=== PATIENT | female | born 1945 | race Caucasian/White ===

== ENCOUNTER 2019-11-05 06:52 | Outpatient (CLI) | payer MEDICARE, SELFPAY ==
[2019-11-05 07:13] LABS: Add Urine Microscopic? YES; Appearance Urine Clear (Clear); Basophils Absolute Auto 0.06 K/mm3 (0.00-0.10); Basophils Percent Auto 1.3 % (0.0-1.0); Bilirubin Urine Negative (Negative); Blood Urine Negative (Negative); Color Urine Yellow (Yellow); Eosinophils Absolute Auto 0.13 K/mm3 (0.02-0.50); Eosinophils Percent Auto 2.9 % (1.0-6.0); Glucose Urine UA Negative (Negative); Hemoglobin 14.4 g/dL (11.7-13.8); Immature Granulocyte Absolute 0.01 K/mm3 (0.00-0.00); Immature Granulocyte Percent A 0.2 % (0.0-0.0); Ketones Urine Negative (Negative); Leukocyte Esterase Ur 1+ LEU/UL (Negative); Lymphocytes Absolute Auto 1.77 K/mm3 (1.10-4.50); Lymphocytes Percent Auto 39.6 % (18.0-42.0); Mean Corpuscular HGB Conc 32.7 g/dL (32.0-36.0); Mean Corpuscular Hemoglobin 29.8 pg (27.0-31.0); Mean Corpuscular Volume 91.1 fL (78.0-102.0); Monocytes Absolute Auto 0.56 K/mm3 (0.10-0.90); Monocytes Percent Auto 12.5 % (2.0-11.0); Neutrophils Absolute Auto 1.9 K/mm3 (1.7-7.2); Neutrophils Percent Auto 43.5 % (50.0-70.0); Nitrate Urine Negative (Negative); Platelet Count Result 263 K/mm3 (150-420); Protein Urine Negative (Negative); Red Blood Count 4.83 M/mm3 (4.20-5.40); Red Cell Distribution Width 12.2 % (11.6-14.4); Specific Grav Ur 1.025 (1.010-1.020); Urobilinogen Urine 0.2 mg/dL (0.2-1.0); White Blood Count 4.5 K/mm3 (4.8-10.8); pH Urine 5.5 (5.0-8.0)
[2019-11-05 07:29] LABS: RBC Urine None seen /hpf (0-2); Squamous Epithelial Cell Urine Few /hpf (Few)
[2019-11-05 07:30] LABS: Bacteria Urine Trace /hpf
[2019-11-05 09:31] LABS: Alanine Aminotransferase 28 U/L (14-59); Alkaline Phosphatase 80 U/L (46-116); Anion Gap 12.4 mmol/L (7-16); Aspartate Amino Transferase 21 U/L (15-37); Bilirubin Direct 0.1 mg/dL (0-0.2); Bilirubin,Total 0.4 mg/dL (0.00-1.00); Blood Urea Nitrogen 19 mg/dL (7-18); Carbon Dioxide 28 mmol/L (21-32); Chloride 103 mmol/L (98-108); Cholesterol 195 mg/dL (0-200); Estimated Glomerular Filt Rate > 60; Glucose 108 mg/dL (70-99); HDL Direct 39 mg/dL (40-60); LDL Cholesterol Calculated 106 mg/dL (<130); Osmolality Calculated 291 mOsm/kg (285-295); Potassium 4.4 mmol/L (3.5-5.1); Sodium 139 mmol/L (136-145); Total Protein 7.1 g/dL (6.4-8.2); Triglycerides 251 mg/dL (0-150)
[2019-11-05 14:20] LABS: Hemoglobin A1C 6.5 % (<5.7)
== END 2019-11-05 06:53 | disposition home or self-care (01) ==
LOC: CHSLAB 06:54
PROVIDERS: PCP Internal Medicine; Visit Provider Internal Medicine
DX: E78.5 Hyperlipidemia, unspecified (principal); I10 Essential (primary) hypertension; N39.0 Urinary tract infection, site not specified; R73.01 Impaired fasting glucose
CPT/HCPCS: 36415; 80053; 80061; 81001; 82248; 83036; 85025; 87086; 87088

== ENCOUNTER 2019-11-30 09:28 | Outpatient (CLI) | payer SELFPAY | END 2019-11-30 09:29 | disposition home or self-care (01) | LOC: CHSOUTPT 09:33 | PROVIDERS: PCP Internal Medicine | DX: Z71.3 Dietary counseling and surveillance (principal) | CPT/HCPCS: 99199 ==

== ENCOUNTER 2020-03-22 14:21 | Outpatient (CLI) | payer MEDICARE, SELFPAY ==
--- NOTE | ~2020-03-22 | MM_ITS ---
EXAMINATION: MM screening emmanuel BI w samra HISTORY: Screening TECHNIQUE: Craniocaudal and mediolateral oblique 3-D tomosynthesis images were obtained and synthetic 2-D images were generated. CAD analysis was submitted and interpreted. COMPARISON: Comparison to multiple prior studies sequentially, with oldest reviewed study dated 02/16. BREAST PARENCHYMAL COMPOSITION: There are scattered areas of fibroglandular density. FINDINGS: There is no evidence of suspicious mass, calcification, or architectural distortion to sugg est malignancy in either breast. There has been no suspicious interval change. IMPRESSION: 1. No mammographic evidence of malignancy. 2. Recommend routine screening mammography in one year. BI-RADS Category 1: Negative Reviewed, dictated and finalized at location D. 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
== END 2020-03-22 14:22 | disposition home or self-care (01) ==
LOC: CHSIMG 14:22
PROVIDERS: PCP Internal Medicine; Visit Provider Student in an Organized Health Care Education/Training Program
DX: Z12.31 Encounter for screening mammogram for malignant neoplasm of breast (principal)
CPT/HCPCS: 77063; 77067

== ENCOUNTER 2020-06-12 06:59 | Outpatient (CLI) | payer MEDICARE, SELFPAY ==
[2020-06-12 07:48] LABS: Hemoglobin A1C 5.6 % (<5.7)
[2020-06-12 08:41] LABS: MALB Creatinine Ratio 19.5 mg/g (0-30); Microalbumin Urine Random < 13.0 mg/L
[2020-06-12 09:07] LABS: Alanine Aminotransferase 36 U/L (14-59); Albumin Level 4.2 g/dL (3.4-5.0); Alkaline Phosphatase 81 U/L (46-116); Anion Gap 10 mmol/L (8-16); Aspartate Amino Transferase 17 U/L (15-37); Bilirubin,Total 0.3 mg/dL (0.00-1.00); Blood Urea Nitrogen 17 mg/dL (7-18); Calcium 9.1 mg/dL (8.5-10.1); Carbon Dioxide 27 mmol/L (21-32); Chloride 102 mmol/L (98-108); Cholesterol 184 mg/dL (0-200); Estimated Glomerular Filt Rate 57; Glucose 107 mg/dL (70-99); HDL Direct 36 mg/dL (40-60); LDL Cholesterol Calculated 100 mg/dL (<130); Osmolality Calculated 289 mOsm/kg (285-295); Potassium 4.6 mmol/L (3.5-5.1); Sodium 139 mmol/L (136-145); Thyroid Stimulating Hormone 4.13 uIU/mL (0.36-3.74); Total Protein 7.3 g/dL (6.4-8.2); Triglycerides 242 mg/dL (0-150)
== END 2020-06-12 07:00 | disposition home or self-care (01) ==
PROVIDERS: PCP Internal Medicine; Visit Provider Internal Medicine
DX: R73.03 Prediabetes (principal); E78.5 Hyperlipidemia, unspecified
CPT/HCPCS: 36415; 80053; 80061; 82043; 83036; 84443

== ENCOUNTER 2020-08-02 07:04 | Outpatient (CLI) | payer MEDICARE, SELFPAY ==
--- NOTE | ~2020-08-02 | XR_ITS ---
EXAMINATION: XR shoulder RT min 2V DATE: 08/02/2020 07:28 INDICATION: Right shoulder pain. TECHNIQUE: 5 views of right shoulder were obtained. COMPARISON: None. FINDINGS: Bone alignment is normal. No fracture. There is mild osteoarthritis of glenohumeral joint a nd moderate osteoarthritis of acromioclavicular joint. IMPRESSION: 1. Polyarticular osteoarthritis. 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
== END 2020-08-02 07:05 | disposition home or self-care (01) ==
LOC: CHSIMG 07:06
PROVIDERS: PCP Internal Medicine; Visit Provider Internal Medicine
DX: M25.511 Pain in right shoulder (principal)
CPT/HCPCS: 73030

== ENCOUNTER 2020-10-29 13:04 | Emergency (ER) | payer MEDICARE, SELFPAY ==
[2020-10-29 13:10] VITALS: BP 137/69; PULSE 77; RESP 16; TEMP 36.6; O2SAT 97
--- NOTE | 2020-10-29 13:38 | ED.LOWEXIN ---
HPI - Extremity Injury (Lower) General Chief Complaint: Extremity Injury, Lower Stated Complaint: left leg pain Time Seen by Provider: 10/29/20 13:25 Source: patient Mode of arrival: ambulatory Limitations: no limitations History of Present Illness HPI Narrative: This nice woman comes in with bruising and swelling to the left lower leg which has gone on since when she was hit by a line drive by her 9 year old niece when laying ball with the child. The child hit a ball which hit her lower left leg. Leg has subsequently swelled, and it appears she has had some bruising and bleeding into the lower leg, which has caused the lower leg and the ankle to swell. Pain has been mild to moderate there. Tylenol has helped her to feel better. She has been worried about a deep vein thrombosis. No other associated signs/symptoms. Place: home Severity: mild Relieving factors: other (tylenol) Exacerbating factors: movement Context: direct blow Associated symptoms: swelling Other symptoms: none Treatments prior to arrival: cold therapy Related Data Home Medications Medication Instructions Recorded Confirmed ascorbate calcium (vitamin C) 500 500 mg PO DAILY 06/03/19 10/29/20 mg tablet calcium carbonate 600 mg calcium 600 mg PO DAILY 06/03/19 10/29/20 (1,500 mg) tablet metoprolol tartrate 25 mg tablet 25 mg PO DAILY 06/03/19 10/29/20 simvastatin 40 mg tablet 40 mg PO DAILY 06/03/19 10/29/20 spironolactone 50 mg tablet 50 mg PO DAILY 06/03/19 10/29/20 nortriptyline 10 mg PO DAILY 10/29/20 10/29/20 omeprazole 40 mg PO DAILY 10/29/20 10/29/20 Allergies Allergy/AdvReac Type Severity Reaction Status Date / Time Sulfa (Sulfonamide Allergy Unknown Unknown Verified 03/22/20 08:59 Antibiotics) Review of Systems Constitutional: Constitutional: Reports no additional constitutional complaints Eyes: Eyes: Reports no additional eye complaints ENT: Reports system reviewed and no additional complaints, except as documented Cardiovascular: Cardiovascular: Reports no additional cardiovascular complaints Respiratory: Respiratory: Reports no additional respiratory complaints Gastrointestinal: Gastrointestinal: Reports no additional gastrointestinal complaints Genitourinary: Genitourinary: Reports no additional female genitourinary complaints Musculoskeletal: Musculoskeletal: Reports no additional musculoskeletal complaints Integumentary/Breasts: Skin/Breast: Reports system reviewed and no additional complaints, except as docu Neurologic: Reports system reviewed and no additional complaints, except as documented Psychiatric: Psychiatric: Reports no additional psychiatric complaints Endocrine: Endocrine: Reports no additional endocrine complaints Hematologic/Lymphatic: Hematologic/Lymphatic: Reports no additional hematologic/lymphatic complaints Allergic/Immunologic: Allergic/Immunologic: Reports no additional allergic/immunologic complaints PMFSH Past Medical History Medical History Acid reflux Anemia Diverticulosis Endometrial cancer History of vaginal delivery Hypertension Irritable bowel Migraines Surgical History Surgical History History of appendectomy History of bladder surgery History of robot-assisted laparoscopic hysterectomy Family History Family History Father Family history of hypercholesterolemia Hypertension Acute myocardial infarction Cerebrovascular accident Mother Family history of Alzheimer's disease Social History Social History Smoking status: Never smoker Alcohol intake: never Exam Const: General: no acute distress and alert Orientation/consciousness: patient oriented x3 HENMT: Head: normal to inspection Ears: external ears normal and TM's normal bilaterally General
[2020-10-29 13:57] LABS: Basophils Absolute Auto 0.05 K/mm3 (0.00-0.10); Basophils Percent Auto 0.9 % (0.0-1.0); Eosinophils Absolute Auto 0.09 K/mm3 (0.02-0.50); Eosinophils Percent Auto 1.6 % (1.0-6.0); Hematocrit 40.9 % (35.0-42.0); Hemoglobin 13.7 g/dL (11.7-13.8); Immature Granulocyte Absolute 0.02 K/mm3 (0.00-0.00); Immature Granulocyte Percent A 0.3 % (0.0-0.0); Lymphocytes Percent Auto 31.5 % (18.0-42.0); Mean Corpuscular HGB Conc 33.5 g/dL (32.0-36.0); Mean Corpuscular Hemoglobin 30.7 pg (27.0-31.0); Mean Corpuscular Volume 91.7 fL (78.0-102.0); Monocytes Absolute Auto 0.51 K/mm3 (0.10-0.90); Monocytes Percent Auto 8.9 % (2.0-11.0); Neutrophils Absolute Auto 3.3 K/mm3 (1.7-7.2); Neutrophils Percent Auto 56.8 % (50.0-70.0); Platelet Count Result 258 K/mm3 (150-420); Red Blood Count 4.46 M/mm3 (4.20-5.40); Red Cell Distribution Width 12.5 % (11.6-14.4); White Blood Count 5.7 K/mm3 (4.8-10.8)
[2020-10-29 14:15] LABS: Lactic Acid Reflex 0.6 mmol/L (0.4-2.0)
[2020-10-29] MEDS: cefTRIAXone 1 GM VIAL IM (14:18)
[2020-10-29 14:45] VITALS: RESP 14; O2SAT 98
== END 2020-10-29 14:44 | disposition home or self-care (01) ==
PROVIDERS: Emergency Provider Emergency Medicine; PCP Internal Medicine
DX: S80.12XA Contusion of left lower leg, initial encounter (principal); L03.116 Cellulitis of left lower limb; W21.00XA Struck by hit or thrown ball, unspecified type, initial encounter
CPT/HCPCS: 36415; 83605; 85025; 96372; 99283; 99285; J0696

== ENCOUNTER 2020-10-30 09:24 | Outpatient (CLI) | payer MEDICARE, SELFPAY ==
--- NOTE | ~2020-10-30 | US_ITS ---
EXAMINATION:US venous doppler LE LT INDICATION:Left lower extremity pain TECHNIQUE: Multiple grayscale, color flow and Doppler images of the left lower extremity deep venous systems were obtained and reviewed. COMPARISON:No prior studies for comparison. FINDINGS: The common femoral, superficial femoral and popliteal veins demonstrate normal respiratory variation, augmentation and compressibility. Color flow is also seen within the posterior tibial, pe roneal, greater saphenous and profunda veins. IMPRESSION: 1: No lower extremity deep venous thrombosis. 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
== END 2020-10-30 09:25 | disposition home or self-care (01) ==
LOC: CHSIMG 09:25
PROVIDERS: PCP Internal Medicine; Visit Provider Emergency Medicine
DX: M79.89 Other specified soft tissue disorders (principal)
CPT/HCPCS: 93971

== ENCOUNTER 2020-11-14 15:08 | Outpatient (CLI) | payer MEDICARE, SELFPAY ==
--- NOTE | ~2020-11-14 | XR_ITS ---
EXAMINATION: XR tibia fibula LT 2V INDICATION: Left leg bruising and hematoma TECHNIQUE: Two views of the left tibia and fibula are obtained on four radiographs. COMPARISON: 03/12/2007 FINDINGS: Bone alignment is normal. There is no fracture. Soft tissue swelling is seen anterior to th e mid tibia on the lateral view. No underlying osseous abnormality is identified. No radiopaque forei gn body is seen. There is mild osteoarthritis of the knee. IMPRESSION: 1. Anterior soft tissue swelling of the leg without underlying osseous abnormality identified. Reviewed, dictated and finalized at location B. IMPRESSION: 1. Anterior soft tissue swelling of the leg without underlying osseous abnormal ity identified.
== END 2020-11-14 15:09 | disposition home or self-care (01) ==
LOC: CHSIMG 15:11
PROVIDERS: PCP Internal Medicine; Visit Provider Specialist
DX: T14.8XXA Other injury of unspecified body region, initial encounter (principal)
CPT/HCPCS: 73590

== ENCOUNTER 2020-12-20 06:57 | Outpatient (CLI) | payer MEDICARE, SELFPAY ==
[2020-12-20 07:12] LABS: Basophils Absolute Auto 0.05 K/mm3 (0.00-0.10); Basophils Percent Auto 0.9 % (0.0-1.0); Eosinophils Absolute Auto 0.23 K/mm3 (0.02-0.50); Eosinophils Percent Auto 4.2 % (1.0-6.0); Hematocrit 44.6 % (35.0-42.0); Hemoglobin 14.5 g/dL (11.7-13.8); Immature Granulocyte Absolute 0.01 K/mm3 (0.00-0.00); Immature Granulocyte Percent A 0.2 % (0.0-0.0); Lymphocytes Absolute Auto 2.25 K/mm3 (1.10-4.50); Lymphocytes Percent Auto 41.2 % (18.0-42.0); Mean Corpuscular HGB Conc 32.5 g/dL (32.0-36.0); Mean Corpuscular Hemoglobin 30.3 pg (27.0-31.0); Mean Corpuscular Volume 93.1 fL (78.0-102.0); Mean Platelet Volume 8.1 fl (9.2-11.8); Monocytes Absolute Auto 0.58 K/mm3 (0.10-0.90); Monocytes Percent Auto 10.6 % (2.0-11.0); Neutrophils Absolute Auto 2.3 K/mm3 (1.7-7.2); Neutrophils Percent Auto 42.9 % (50.0-70.0); Platelet Count Result 275 K/mm3 (150-420); Red Blood Count 4.79 M/mm3 (4.20-5.40); Red Cell Distribution Width 12.2 % (11.6-14.4); White Blood Count 5.5 K/mm3 (4.8-10.8)
[2020-12-20 07:43] LABS: Hemoglobin A1C 6.2 % (<5.7)
[2020-12-20 08:10] LABS: Alanine Aminotransferase 27 U/L (14-59); Albumin Level 4.1 g/dL (3.4-5.0); Alkaline Phosphatase 78 U/L (46-116); Anion Gap 11 mmol/L (8-16); Aspartate Amino Transferase 15 U/L (15-37); Bilirubin,Total 0.4 mg/dL (0.00-1.00); Blood Urea Nitrogen 17 mg/dL (7-18); Calcium 9.2 mg/dL (8.5-10.1); Carbon Dioxide 27 mmol/L (21-32); Chloride 104 mmol/L (98-108); Cholesterol 188 mg/dL (0-200); Estimated Glomerular Filt Rate > 60; Glucose 114 mg/dL (70-99); HDL Direct 37 mg/dL (40-60); LDL Cholesterol Calculated 89 mg/dL (<130); Osmolality Calculated 296 mOsm/kg (285-295); Potassium 4.5 mmol/L (3.5-5.1); Sodium 142 mmol/L (136-145); Thyroid Stimulating Hormone 3.71 uIU/mL (0.36-3.74); Total Protein 6.9 g/dL (6.4-8.2); Triglycerides 311 mg/dL (0-150)
== END 2020-12-20 06:58 | disposition home or self-care (01) ==
LOC: CHSLAB 06:59
PROVIDERS: PCP Internal Medicine; Visit Provider Internal Medicine
DX: R73.03 Prediabetes (principal); I10 Essential (primary) hypertension; E78.5 Hyperlipidemia, unspecified
CPT/HCPCS: 36415; 80053; 80061; 83036; 84443; 85025

== ENCOUNTER 2021-03-26 06:59 | Outpatient (CLI) | payer MEDICARE, SELFPAY ==
--- NOTE | ~2021-03-26 | MM_ITS ---
EXAMINATION: MM screening emmanuel BI w samra HISTORY: Screening mammogram TECHNIQUE: Craniocaudal and mediolateral oblique 3-D tomosynthesis images were obtained and synthetic 2-D images were generated. CAD analysis was submitted and interpreted. COMPARISON: 03/2020, 03/16/2019, 03/13/2018 bilateral screening mammogram examinations BREAST PARENCHYMAL COMPOSITION: The breasts are almost entirely fatty. FINDINGS: There is no evidence of suspicious mass, calcification, or architectural distortion to sugg est malignancy in either breast. There has been no suspicious interval change. IMPRESSION: 1. No mammographic evidence of malignancy. 2. Recommend routine screening mammography in one year. 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
== END 2021-03-26 07:00 | disposition home or self-care (01) ==
LOC: CHSIMG 07:00
PROVIDERS: PCP Internal Medicine; Visit Provider Student in an Organized Health Care Education/Training Program
DX: Z12.31 Encounter for screening mammogram for malignant neoplasm of breast (principal)
CPT/HCPCS: 77063; 77067

== ENCOUNTER 2021-08-04 07:02 | Outpatient (CLI) | payer MEDICARE, SELFPAY ==
--- NOTE | ~2021-08-04 | XR_ITS ---
XR cervical spine 4-5V 08/04/2021 07:44 Indication: Neck pain for one month. No trauma. Procedure: 4 view cervical spine. Comparison: 03/24/2015 Findings: There is degenerative disc disease at C5-6 and C6-7. There is degenerative anterolisthesis at C4-5. Odontoid process is unremarkable. Lung apices are normal. There is moderate multilevel uncin ate degenerative change Impression: 1: Moderate cervical spondylosis. 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 Impression: 1: Moderate cervical spondylosis.
[2021-08-04 07:21] LABS: Basophils Absolute Auto 0.05 K/mm3 (0.00-0.10); Basophils Percent Auto 0.8 % (0.0-1.0); Eosinophils Absolute Auto 0.19 K/mm3 (0.02-0.50); Eosinophils Percent Auto 3.1 % (1.0-6.0); Hematocrit 44.4 % (35.0-42.0); Hemoglobin 14.4 g/dL (11.7-13.8); Immature Granulocyte Absolute 0.02 K/mm3 (0.00-0.00); Immature Granulocyte Percent A 0.3 % (0.0-0.0); Lymphocytes Percent Auto 42.8 % (18.0-42.0); Mean Corpuscular HGB Conc 32.4 g/dL (32.0-36.0); Mean Corpuscular Hemoglobin 30.3 pg (27.0-31.0); Mean Corpuscular Volume 93.5 fL (78.0-102.0); Mean Platelet Volume 8.2 fl (9.2-11.8); Monocytes Absolute Auto 0.68 K/mm3 (0.10-0.90); Monocytes Percent Auto 11.2 % (2.0-11.0); Neutrophils Absolute Auto 2.5 K/mm3 (1.7-7.2); Neutrophils Percent Auto 41.8 % (50.0-70.0); Platelet Count Result 295 K/mm3 (150-420); Red Blood Count 4.75 M/mm3 (4.20-5.40); Red Cell Distribution Width 12.3 % (11.6-14.4); White Blood Count 6.1 K/mm3 (4.8-10.8)
[2021-08-04 07:24] LABS: Add Urine Microscopic? YES; Appearance Urine Clear (Clear); Bilirubin Urine Negative (Negative); Blood Urine Negative (Negative); Color Urine Light Yellow (Yellow); Glucose Urine UA Negative (Negative); Ketones Urine Negative (Negative); Leukocyte Esterase Ur 1+ LEU/UL (Negative); Nitrate Urine Negative (Negative); Protein Urine Negative (Negative); Specific Grav Ur 1.015 (1.010-1.020); Urobilinogen Urine 0.2 mg/dL (0.2-1.0)
[2021-08-04 07:31] LABS: Hemoglobin A1C 6.2 % (<5.7)
[2021-08-04 07:39] LABS: Bacteria Urine Trace /hpf; RBC Urine None seen /hpf (0-2); Squamous Epithelial Cell Urine Rare /hpf (Few)
[2021-08-04 08:20] LABS: Alanine Aminotransferase 24 U/L (14-59); Albumin Level 4.2 g/dL (3.4-5.0); Alkaline Phosphatase 72 U/L (46-116); Anion Gap 9 mmol/L (8-16); Aspartate Amino Transferase 13 U/L (15-37); Bilirubin,Total 0.4 mg/dL (0.00-1.00); Blood Urea Nitrogen 24 mg/dL (7-18); Calcium 9.5 mg/dL (8.5-10.1); Carbon Dioxide 27 mmol/L (21-32); Chloride 101 mmol/L (98-108); Cholesterol 192 mg/dL (0-200); Estimated Glomerular Filt Rate 58; Glucose 101 mg/dL (70-99); HDL Direct 39 mg/dL (40-60); LDL Cholesterol Calculated 93 mg/dL (<130); Osmolality Calculated 288 mOsm/kg (285-295); Potassium 4.6 mmol/L (3.5-5.1); Sodium 137 mmol/L (136-145); Thyroid Stimulating Hormone 3.02 uIU/mL (0.36-3.74); Total Protein 7.1 g/dL (6.4-8.2); Triglycerides 302 mg/dL (0-150)
== END 2021-08-04 07:03 | disposition home or self-care (01) ==
LOC: CHSIMG 07:05
PROVIDERS: PCP Internal Medicine; Visit Provider Nurse Practitioner Family
DX: E78.5 Hyperlipidemia, unspecified (principal); Z00.00 Encounter for general adult medical examination without abnormal findings; R73.9 Hyperglycemia, unspecified; I10 Essential (primary) hypertension; M54.2 Cervicalgia; R82.90 Unspecified abnormal findings in urine
CPT/HCPCS: 36415; 72050; 80053; 80061; 81001; 83036; 84443; 85025; 87086; 87088

== ENCOUNTER 2021-08-08 08:19 | Outpatient (CLI) | payer MEDICARE, SELFPAY ==
--- NOTE | ~2021-08-08 | DEXA_ITS ---
Bone Density Report Name: MIKAL MOJICA Age: 76 Sex: Female Ethnicity: White Date of : 1945 Indication: postmenopausal; screening for osteoporosis; height loss; Referring Provider: Kendra Ovalles Study: Bone densitometry was performed. Exam Date: August 08, 2021 Accession number: [id number] Bone Density: Region BMD T-score Z-score Classification AP Spine(L1-L4) 0.972 -0.7 1.7 Normal Femoral Neck (Left) 0.671 -1.6 0.5 Osteopenia Total Hip (Left) 0.808 -1.1 0.7 Osteopenia Femoral Neck (Right) 0.682 -1.5 0.6 Osteopenia Total Hip (Right) 0.860 -0.7 1.1 Normal Femoral Neck Mean 0.676 -1.6 0.5 Osteopenia Total Hip Mean 0.834 -0.9 0.9 Normal World Health Organization criteria for BMD impression classify patients as: Normal (T-score at or above -1.0), Osteopenia (T-score between -1.0 and -2.5), or Osteoporosis (T-score at or below -2.5). 10-year Fracture Risk(1): Major Osteoporotic Fracture 6.3% Hip Fracture 1.3% Reported Risk Factors: [place] (), Neck BMD=0.671, BMI=32.0 (1) FRAX(R) Version 3.08. Fracture probability calculated for an untreated patient. Fracture probability may be lower if the patient has received treatment. Clinical Information Provided by Patient: Has used the following medications: Vitamin D, Calcium Patient maximum height was 64 Drinks caffeinated beverages Onset of menses at age 14 Number of children 2 Impression: The patient has low bone mass, based on the Left Femoral Neck T-score. Discussion: BONE DENSITY IS LOW AT ONE OR MORE SKELETAL SITES. This patient's lowest T-score is low at one or more skeletal sites. It meets the World Health Organization's (WHO) criteria for ?low bone mass? (T-score between -1.0 and -2.5). The patient's 10-year risk of fracture as calculated by FRAX is less than the threshold where pharmacological therapy is recommended by the National Osteoporosis Foundation (NOF). However, all treatment decisions require clinical judgment and consideration of individual patient factors, including patient preferences, comorbidities, previous drug use, risk factors not captured in the FRAX model (e.g., frailty, falls, vitamin D deficiency, increased bone turnover, interval significant decline in bone density) and possible under or overestimation of fracture risk by FRAX. The patient should follow a healthful lifestyle (good nutrition with adequate calcium and vitamin D, and appropriate weight-bearing exercise). Follow-Up: Consider repeating this study in 2 to 3 years to reassess this patient's status, or sooner if there is some new clinical indication. Reported by: Dr. Tristan Byrnes on 08/08/2021 8:47:00 AM. 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
== END 2021-08-08 08:20 | disposition home or self-care (01) ==
LOC: CHSIMG 08:20
PROVIDERS: PCP Internal Medicine; Visit Provider Student in an Organized Health Care Education/Training Program
DX: Z78.0 Asymptomatic menopausal state (principal)
CPT/HCPCS: 77080

== ENCOUNTER 2021-10-03 17:48 | Outpatient (CLI) | payer MEDICARE, SELFPAY ==
--- NOTE | ~2021-10-03 | XR_ITS ---
EXAM: XR knee RT 3V DATE: 10/03/2021 18:17 HISTORY: Right knee injury x 1wk ago anterior RT knee pain . COMPARISON: 09/30/2017. FINDINGS: Decreased mineralization. No fracture or dislocation. No lytic or blastic lesion. Moderate medial joint space narrowing and mild tricompartmental osteophytosis. No erosion or periosteal morales e. Soft tissues within normal limits. IMPRESSION: No acute osseous finding in the right knee. Reviewed, dictated and finalized at location K.
== END 2021-10-03 17:49 | disposition home or self-care (01) ==
LOC: CHSIMG 17:57
PROVIDERS: PCP Internal Medicine; Visit Provider Internal Medicine
DX: S89.91XA Unspecified injury of right lower leg, initial encounter (principal)
CPT/HCPCS: 73562

== ENCOUNTER 2021-12-20 23:20 | Emergency (ER) | payer MEDICARE, SELFPAY ==
[2021-12-20 23:33] VITALS: BP 168/78; PULSE 88; RESP 20; TEMP 36.4; O2SAT 96
[2021-12-20 23:33] LABS: Add Urine Microscopic? YES; Appearance Urine Cloudy (Clear); Bilirubin Urine Negative (Negative); Blood Urine 3+ (Negative); Color Urine Light Yellow (Yellow); Glucose Urine UA Negative (Negative); Ketones Urine Negative (Negative); Leukocyte Esterase Ur 3+ LEU/UL (Negative); Nitrate Urine Negative (Negative); Protein Urine 2+ (Negative); Urobilinogen Urine 0.2 mg/dL (0.2-1.0)
--- NOTE | 2021-12-20 23:40 | ED.FEMALEGU ---
HPI - Female Genitourinary General Chief complaint: Urogenital-Female Stated complaint: possible uti Time Seen by Provider: 12/20/21 23:40 Source: patient History of Present Illness HPI Narrative: 76-year-old female with history of endometrial cancer status post hysterectomy and RT 4 years ago, hypertension, dyslipidemia presents to the ER with -- dysuria and frequent urination. no Hematuria. no flank pain. No fever MD elicited complaint: dysuria and UTI Pertinent past history: recurrent UTIs Onset (ago): hour(s) ( started a few hours ago) Severity: mild Female Urogenital Radiation: Non-Radiating Quality of pain: burning Vaginal discharge: none Vaginal bleeding: none Urinary symptoms: Dysuria and Urgency Exacerbating factors: none Relieving factors: none Associated symptoms: denies other symptoms Treatment prior to arrival: none Patient : No Related Data Home Medications Medication Instructions Recorded Confirmed calcium carbonate 600 mg calcium 600 mg PO DAILY 06/03/19 10/29/20 (1,500 mg) tablet (Calcium) metoprolol tartrate 25 mg tablet 25 mg PO DAILY 06/03/19 10/29/20 simvastatin 40 mg tablet 40 mg PO DAILY 06/03/19 10/29/20 spironolactone 50 mg tablet 50 mg PO DAILY 06/03/19 10/29/20 nortriptyline 10 mg capsule 10 mg PO DAILY 10/29/20 10/29/20 omeprazole 40 mg capsule,delayed 40 mg PO DAILY 10/29/20 10/29/20 release Allergies Allergy/AdvReac Type Severity Reaction Status Date / Time Sulfa (Sulfonamide Allergy Unknown Unknown Verified 04/18/21 09:19 Antibiotics) Review of Systems Review of Systems: All systems reviewed & are unremarkable except as noted in HPI and below Constitutional: Constitutional: Reports as per HPI and Reports no additional constitutional complaints Eyes: Eyes: Reports as per HPI and Reports no additional eye complaints ENT: Reports system reviewed and no additional complaints, except as documented and Reports as per HPI Cardiovascular: Cardiovascular: Reports as per HPI and Reports no additional cardiovascular complaints Respiratory: Respiratory: Reports as per HPI and Reports no additional respiratory complaints Gastrointestinal: Gastrointestinal: Reports as per HPI and Reports no additional gastrointestinal complaints Genitourinary: Genitourinary: Reports no additional female genitourinary complaints, Reports as per HPI, Reports nocturia and Reports dysuria Musculoskeletal: Musculoskeletal: Reports no additional musculoskeletal complaints and Reports as per HPI Integumentary/Breasts: Skin/Breast: Reports system reviewed and no additional complaints, except as docu and Reports as per HPI Neurologic: Reports system reviewed and no additional complaints, except as documented and Reports as per HPI Psychiatric: Psychiatric: Reports no additional psychiatric complaints and Reports as per HPI Endocrine: Endocrine: Reports no additional endocrine complaints and Reports as per HPI Hematologic/Lymphatic: Hematologic/Lymphatic: Reports no additional hematologic/lymphatic complaints and Reports as per HPI Allergic/Immunologic: Allergic/Immunologic: Reports no additional allergic/immunologic complaints and Reports as per HPI PMFSH Past Medical History Medical History Acid reflux Anemia Diverticulosis Endometrial cancer High cholesterol History of vaginal delivery Hypertension Irritable bowel Migraines Surgical History Surgical History History of appendectomy History of bladder surgery History of lumpectomy of left breast History of robot-assisted laparoscopic hysterectomy History of shoulder surgery Family History Family History Father Family history of hypercholesterolemia Hypertension Acute myocardial infarction Cerebrovascular accident Mother Family history of Alzheimer's disea
[2021-12-20 23:41] LABS: Bacteria Urine 1+ /hpf; RBC Urine >75 /hpf (0-2); Squamous Epithelial Cell Urine None seen /hpf (Few); WBC Urine >75 /hpf (0-3)
[2021-12-21] MEDS: CIPROFLOXACIN 500 MG TAB (00:30)
[2021-12-21 00:32] VITALS: BP 138/71; PULSE 74; RESP 18; O2SAT 99
== END 2021-12-21 00:36 | disposition home or self-care (01) ==
PROVIDERS: Emergency Provider Internal Medicine Critical Care Medicine; PCP Internal Medicine
DX: N30.90 Cystitis, unspecified without hematuria (principal); I10 Essential (primary) hypertension
CPT/HCPCS: 81001; 87077; 87086; 87088; 87186; 99283; A9270

== ENCOUNTER 2022-03-28 07:50 | Outpatient (CLI) | payer MEDICARE, SELFPAY ==
--- NOTE | ~2022-03-28 | MM_ITS ---
EXAMINATION: MM screening emmanuel BI w samra HISTORY: Screening mammogram TECHNIQUE: Craniocaudal and mediolateral oblique 3-D tomosynthesis images were obtained and synthetic 2-D images were generated. CAD analysis was submitted and interpreted. COMPARISON: 03/26/2021, 03/2020, 03/16/2019 bilateral screening mammogram examinations BREAST PARENCHYMAL COMPOSITION: The breasts are almost entirely fatty. FINDINGS: Stable benign appearing intramammary lymph nodes in the outer mid breast. There is no evide nce of suspicious mass, calcification, or architectural distortion to suggest malignancy in either br east. There has been no suspicious interval change. IMPRESSION: 1. No mammographic evidence of malignancy. 2. Recommend routine screening mammography in one year. BI-RADS Category 2: Benign finding(s). 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
== END 2022-03-28 07:51 | disposition home or self-care (01) ==
PROVIDERS: PCP Internal Medicine; Visit Provider Student in an Organized Health Care Education/Training Program
DX: Z12.31 Encounter for screening mammogram for malignant neoplasm of breast (principal)
CPT/HCPCS: 77063; 77067

== ENCOUNTER 2022-04-10 06:53 | Outpatient (CLI) | payer MEDICARE, SELFPAY ==
[2022-04-10 07:08] LABS: Basophils Absolute Auto 0.07 K/mm3 (0.00-0.10); Basophils Percent Auto 1.4 % (0.0-1.0); Eosinophils Absolute Auto 0.24 K/mm3 (0.02-0.50); Eosinophils Percent Auto 4.6 % (1.0-6.0); Hematocrit 43.6 % (35.0-42.0); Hemoglobin 14.1 g/dL (11.7-13.8); Immature Granulocyte Absolute 0.02 K/mm3 (0.00-0.00); Immature Granulocyte Percent A 0.4 % (0.0-0.0); Lymphocytes Absolute Auto 1.99 K/mm3 (1.10-4.50); Lymphocytes Percent Auto 38.5 % (18.0-42.0); Mean Corpuscular HGB Conc 32.3 g/dL (32.0-36.0); Mean Corpuscular Hemoglobin 29.9 pg (27.0-31.0); Mean Corpuscular Volume 92.6 fL (78.0-102.0); Mean Platelet Volume 7.9 fl (9.2-11.8); Monocytes Absolute Auto 0.52 K/mm3 (0.10-0.90); Monocytes Percent Auto 10.1 % (2.0-11.0); Neutrophils Absolute Auto 2.3 K/mm3 (1.7-7.2); Platelet Count Result 265 K/mm3 (150-420); Red Blood Count 4.71 M/mm3 (4.20-5.40); Red Cell Distribution Width 12.2 % (11.6-14.4); White Blood Count 5.2 K/mm3 (4.8-10.8)
[2022-04-10 07:43] LABS: Alanine Aminotransferase 23 U/L (14-59); Albumin Level 4.1 g/dL (3.4-5.0); Alkaline Phosphatase 79 U/L (46-116); Anion Gap 8 mmol/L (8-16); Aspartate Amino Transferase 16 U/L (15-37); Bilirubin,Total 0.4 mg/dL (0.00-1.00); Blood Urea Nitrogen 19 mg/dL (7-18); Carbon Dioxide 32 mmol/L (21-32); Chloride 103 mmol/L (98-108); Cholesterol 195 mg/dL (0-200); Estimated Glomerular Filt Rate 57; Glucose 110 mg/dL (70-99); HDL Direct 40 mg/dL (40-60); LDL Cholesterol Calculated 106 mg/dL (<130); Osmolality Calculated 299 mOsm/kg (285-295); Potassium 4.5 mmol/L (3.5-5.1); Sodium 143 mmol/L (136-145); Total Protein 7.1 g/dL (6.4-8.2); Triglycerides 245 mg/dL (0-150)
[2022-04-10 10:03] LABS: Hemoglobin A1C 5.9 % (<5.7)
== END 2022-04-10 06:54 | disposition home or self-care (01) ==
LOC: CHSLAB 06:56
PROVIDERS: PCP Internal Medicine; Visit Provider Internal Medicine
DX: E78.5 Hyperlipidemia, unspecified (principal); I10 Essential (primary) hypertension; R73.9 Hyperglycemia, unspecified
CPT/HCPCS: 36415; 80053; 80061; 83036; 85025

== ENCOUNTER 2022-06-24 11:14 | Outpatient (CLI) | payer MEDICARE, SELFPAY ==
--- NOTE | ~2022-06-24 | XR_ITS ---
Clinical Indication: Cough PA and lateral views of the chest: Comparison: 03/16/2015 Findings: The lungs are clear, without evidence of focal consolidation or pleural effusion. Cardiome diastinal silhouette is within normal limits. Bones and soft tissues are unremarkable. Impression: Normal chest. Reviewed, dictated and finalized at [facility]. 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
[2022-06-24 11:33] LABS: Basophils Absolute Auto 0.05 K/mm3 (0.00-0.10); Basophils Percent Auto 0.6 % (0.0-1.0); Eosinophils Absolute Auto 0.19 K/mm3 (0.02-0.50); Eosinophils Percent Auto 2.5 % (1.0-6.0); Hematocrit 41.2 % (35.0-42.0); Hemoglobin 13.6 g/dL (11.7-13.8); Immature Granulocyte Absolute 0.05 K/mm3 (0.00-0.00); Immature Granulocyte Percent A 0.6 % (0.0-0.0); Lymphocytes Absolute Auto 2.24 K/mm3 (1.10-4.50); Lymphocytes Percent Auto 28.9 % (18.0-42.0); Mean Corpuscular Hemoglobin 30.4 pg (27.0-31.0); Mean Corpuscular Volume 92.2 fL (78.0-102.0); Mean Platelet Volume 7.9 fl (9.2-11.8); Monocytes Absolute Auto 0.88 K/mm3 (0.10-0.90); Monocytes Percent Auto 11.4 % (2.0-11.0); Neutrophils Absolute Auto 4.3 K/mm3 (1.7-7.2); Platelet Count Result 302 K/mm3 (150-420); Red Blood Count 4.47 M/mm3 (4.20-5.40); Red Cell Distribution Width 12.2 % (11.6-14.4); White Blood Count 7.7 K/mm3 (4.8-10.8)
[2022-06-24 12:21] LABS: Alanine Aminotransferase 13 U/L (14-59); Albumin Level 3.4 g/dL (3.4-5.0); Alkaline Phosphatase 85 U/L (46-116); Anion Gap 6 mmol/L (8-16); Aspartate Amino Transferase 13 U/L (15-37); Bilirubin,Total 0.3 mg/dL (0.00-1.00); Blood Urea Nitrogen 12 mg/dL (7-18); Calcium 8.9 mg/dL (8.5-10.1); Carbon Dioxide 30 mmol/L (21-32); Chloride 102 mmol/L (98-108); Estimated Glomerular Filt Rate 56; Glucose 96 mg/dL (70-99); Osmolality Calculated 285 mOsm/kg (285-295); Potassium 4.6 mmol/L (3.5-5.1); Sodium 138 mmol/L (136-145); Total Protein 6.7 g/dL (6.4-8.2)
== END 2022-06-24 11:15 | disposition home or self-care (01) ==
LOC: CHSLAB 11:16
PROVIDERS: PCP Internal Medicine; Visit Provider Internal Medicine
DX: R05.9 Cough, unspecified (principal)
CPT/HCPCS: 36415; 71046; 80053; 85025

== ENCOUNTER 2022-12-18 06:56 | Outpatient (CLI) | payer MEDICARE, SELFPAY ==
[2022-12-18 07:44] LABS: Alanine Aminotransferase 30 U/L (14-59); Alkaline Phosphatase 82 U/L (46-116); Anion Gap 9 mmol/L (8-16); Aspartate Amino Transferase 18 U/L (15-37); Bilirubin,Total 0.5 mg/dL (0.00-1.00); Blood Urea Nitrogen 20 mg/dL (7-18); Calcium 9.1 mg/dL (8.5-10.1); Carbon Dioxide 26 mmol/L (21-32); Chloride 105 mmol/L (98-108); Cholesterol 204 mg/dL (0-200); Estimated Glomerular Filt Rate 55; Glucose 110 mg/dL (70-99); HDL Direct 39 mg/dL (40-60); LDL Cholesterol Calculated 97 mg/dL (<130); Osmolality Calculated 293 mOsm/kg (285-295); Potassium 4.5 mmol/L (3.5-5.1); Sodium 140 mmol/L (136-145); Triglycerides 339 mg/dL (0-150)
[2022-12-18 11:32] LABS: Hemoglobin A1C 6.1 % (<5.7)
== END 2022-12-18 06:57 | disposition home or self-care (01) ==
LOC: CHSLAB 06:58
PROVIDERS: PCP Internal Medicine; Visit Provider Internal Medicine
DX: I10 Essential (primary) hypertension (principal); E78.5 Hyperlipidemia, unspecified; R73.09 Other abnormal glucose
CPT/HCPCS: 36415; 80053; 80061; 83036

== ENCOUNTER 2023-02-26 03:03 | Day surgery (SDC) | payer MEDICARE, SELFPAY ==
[2023-02-14 11:48] VITALS: BMI 31.7
[2023-02-26 10:45] VITALS: BP 179/87; PULSE 103; RESP 16; TEMP 36.3; O2SAT 100; BMI 31.2
[2023-02-26] MEDS: LACTATED RINGERS 1,000 ML 150 ML IV CONT (11:10)
--- NOTE | 2023-02-26 11:29 | WPDANESEPPF ---
Anes - Initial Pre Proc Eval Procedure: Operation Date: 02/26/23 11:30 Proposed Procedures p Colonoscopy - Murali Mcwilliams MD Date/Time: 02/26/23 11:29 Surgeon: Murali Mcwilliams MD Pre Op Diagnosis: Other fecal abnormalities (+ cologuard) Patient Data Age: 77 Gender: F Height: 1.63 m Weight: 82.6 kg Last Vital Signs Temp 97.4 F L 02/26/23 10:45 Pulse 103 H 02/26/23 10:45 Resp 16 02/26/23 10:45 BP 179/87 H 02/26/23 10:45 Pulse Ox 100 02/26/23 10:45 O2 Del Method Room Air 02/26/23 10:45 Allergies Allergy/AdvReac Type Severity Reaction Status Date / Time Sulfa (Sulfonamide AdvReac Unknown Unknown Verified 02/26/23 10:56 Antibiotics) Home Medications Medication Instructions Recorded Confirmed Type calcium carbonate 600 mg calcium 600 mg PO DAILY 06/03/19 02/26/23 History (1,500 mg) tablet (Calcium) metoprolol tartrate 25 mg tablet 25 mg PO DAILY 06/03/19 02/26/23 History simvastatin 40 mg tablet 40 mg PO DAILY 06/03/19 02/26/23 History spironolactone 50 mg tablet 50 mg PO DAILY 06/03/19 02/26/23 History nortriptyline 10 mg capsule 10 - 20 mg PO HS 10/29/20 02/26/23 History omeprazole 40 mg capsule,delayed 40 mg PO DAILY 10/29/20 02/26/23 History release Patient hx anesthesia problems: none Family hx anesthesia problems: none Results Review: All pre-operative results and documents have been reviewed as part of the pre-operative evaluation. [facility] Past Medical History Medical History Acid reflux Anemia Diverticulosis Endometrial cancer High cholesterol History of vaginal delivery Hypertension Irritable bowel Migraines Surgical History Surgical History History of appendectomy History of bladder surgery History of lumpectomy of left breast History of robot-assisted laparoscopic hysterectomy History of shoulder surgery Family History Family History Father Family history of hypercholesterolemia Hypertension Acute myocardial infarction Cerebrovascular accident Mother Family history of Alzheimer's disease Social History Social History Smoking status: Never smoker Alcohol intake: never Substance use: never Substance use type: does not use Lack of Transportation: No Lack of Food: Never True Current Housing: I Have Housing Concerned About Future Housing: No Difficulty Paying Gas/Electric Bills: No Difficulty Paying for Meds: No Currently Unemployed: No Education: High School Diploma/GED Difficulty w/ Childcare or Family Care: No Living arrangements: with family Spiritual care concerns: No Anes - Eval Final PreProcedure Day of Procedure 02/26/23 11:29 Patient weight: obese Heart: regular rate and rhythm Lungs: clear to auscultation Airway: Mallampati scale class II Neurological: alert and oriented Last oral intake: >/= 8 hours ASA classification: III Emergent: no Anesthetic plan: proceed Anesthesia type and monitoring: general GIVS and standard monitoring Results Review: All pre-operative results and documents have been reviewed as part of the pre-operative evaluation. Informed Consent: The patient's anesthetic plan and its attendant risks and benefits were discussed with the patient/family/POA. Questions were solicited and answers provided to the satisfaction of the patient/family/POA.
--- NOTE | 2023-02-26 11:34 | PM.HPGS ---
History of Present Illness History of Present Illness Consent: Risks, benefits, and alternatives have been discussed and questions answered. Patient agrees to proceed with procedure. Chief complaint: Other fecal abnormalities (+ cologuard) Narrative: Hannah Delvalle is a 77 year old female here for colonoscopy, last one 2012, had + cologuard Review of Systems Constitutional: Constitutional: Denies headache(s) and Denies weakness Eyes: Eyes: Denies blurry vision ENT: Reports Normal hearing present, Denies headache(s) and Denies neck pain Cardiovascular: Cardiovascular: Denies chest pain and Denies dyspnea Respiratory: Respiratory: Denies dyspnea Gastrointestinal: Gastrointestinal: Reports no additional gastrointestinal complaints Genitourinary: Genitourinary: Denies dysuria Musculoskeletal: Musculoskeletal: Denies neck pain Integumentary/Breasts: Skin/Breast: Denies dry skin Neurologic: Reports Normal hearing present, Denies headache(s) and Denies weakness Psychiatric: Psychiatric: Denies anxiety Endocrine: Endocrine: Denies change in body appearance Hematologic/Lymphatic: Hematologic/Lymphatic: Denies easy bleeding Allergic/Immunologic: Allergic/Immunologic: Denies urticaria PMFSH Past Medical History Medical History (Updated 02/26/23 @ 11:35 by Murali Mcwilliams MD) Acid reflux Anemia Diverticulosis Endometrial cancer High cholesterol History of vaginal delivery Hypertension Irritable bowel Migraines Positive colorectal cancer screening using Cologuard test Surgical History Surgical History History of appendectomy History of bladder surgery History of lumpectomy of left breast History of robot-assisted laparoscopic hysterectomy History of shoulder surgery Family History Family History Father Family history of hypercholesterolemia Hypertension Acute myocardial infarction Cerebrovascular accident Mother Family history of Alzheimer's disease Social History Social History Smoking status: Never smoker Alcohol intake: never Substance use: never Substance use type: does not use Lack of Transportation: No Lack of Food: Never True Current Housing: I Have Housing Concerned About Future Housing: No Difficulty Paying Gas/Electric Bills: No Difficulty Paying for Meds: No Currently Unemployed: No Education: High School Diploma/GED Difficulty w/ Childcare or Family Care: No Living arrangements: with family Spiritual care concerns: No Meds Home Medications and Allergies Home Medications Medication Instructions Recorded Confirmed Type calcium carbonate 600 mg calcium 600 mg PO DAILY 06/03/19 02/26/23 History (1,500 mg) tablet (Calcium) metoprolol tartrate 25 mg tablet 25 mg PO DAILY 06/03/19 02/26/23 History simvastatin 40 mg tablet 40 mg PO DAILY 06/03/19 02/26/23 History spironolactone 50 mg tablet 50 mg PO DAILY 06/03/19 02/26/23 History nortriptyline 10 mg capsule 10 - 20 mg PO HS 10/29/20 02/26/23 History omeprazole 40 mg capsule,delayed 40 mg PO DAILY 10/29/20 02/26/23 History release Allergies Allergy/AdvReac Type Severity Reaction Status Date / Time Sulfa (Sulfonamide AdvReac Unknown Unknown Verified 02/26/23 10:56 Antibiotics) Vital Signs Vital Signs - 24 hr 02/26/23 10:45 Temperature 97.4 F L Pulse Rate 103 H Respiratory Rate 16 Blood Pressure 179/87 H Pulse Oximetry 100 Oxygen Delivery Room Air Exam Const: General: comfortable and no acute distress HENMT: Face/Nose/Sinus: Normal nares present Eyes: General: appearance normal, both eyes and all related structures Neck: Neck: no JVD Resp: Auscultation: clear to auscultation bilaterally Cardio: Rate: regular rate Rhythm: regular rhythm GI: Inspection: non-distended GI
[2023-02-26 11:56] VITALS: BP 124/83; PULSE 87; RESP 19; O2SAT 97
[2023-02-26 12:06] VITALS: BP 128/77; PULSE 87; RESP 18; O2SAT 98
[2023-02-26 12:16] VITALS: BP 111/88; PULSE 75; RESP 18; O2SAT 98
== END 2023-02-26 12:30 | disposition home or self-care (01) ==
PROVIDERS: PCP Internal Medicine; Visit Provider Internal Medicine Gastroenterology
PROC: 0DJD8ZZ Inspection of Lower Intestinal Tract, Via Natural or Artificial Opening Endoscopic (ICD-10-PCS; CPT 45378; principal; 2023-02-26 11:30)
DX: R19.5 Other fecal abnormalities (principal); K57.30 Diverticulosis of large intestine without perforation or abscess without bleeding; K64.8 Other hemorrhoids; D64.9 Anemia, unspecified; E78.00 Pure hypercholesterolemia, unspecified; I10 Essential (primary) hypertension; E66.9 Obesity, unspecified; Z68.31 Body mass index [BMI] 31.0-31.9, adult; Z85.42 Personal history of malignant neoplasm of other parts of uterus
CPT/HCPCS: 45378; J2704; J7120

== ENCOUNTER 2023-03-31 07:22 | Outpatient (CLI) | payer MEDICARE, SELFPAY ==
--- NOTE | ~2023-03-31 | MM_ITS ---
EXAMINATION: MM screening [facility] BI w samra HISTORY: Screening mammogram TECHNIQUE: Craniocaudal and mediolateral oblique 3-D tomosynthesis images were obtained and synthetic 2-D images were generated. CAD analysis was submitted and interpreted. COMPARISON: 03/28/2022, 03/26/2021, 03/22/2020 BREAST PARENCHYMAL COMPOSITION: The breasts are almost entirely fatty. FINDINGS: An intramammary lymph node is noted in the outer left breast. No suspicious mass, calcifica tion, or architectural distortion are identified in either breast to suggest malignancy. There has be en no suspicious interval change. IMPRESSION: 1. No mammographic evidence of malignancy. 2. Recommend routine screening mammography in one year. BI-RADS Category 2: Benign finding(s). 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
== END 2023-03-31 07:23 | disposition home or self-care (01) ==
LOC: CHSIMG 07:24
PROVIDERS: PCP Internal Medicine; Visit Provider Obstetrics & Gynecology
DX: Z12.31 Encounter for screening mammogram for malignant neoplasm of breast (principal)
CPT/HCPCS: 77063; 77067

== ENCOUNTER 2023-06-02 10:52 | Outpatient (CLI) | payer MEDICARE, SELFPAY ==
[2023-06-02 11:05] LABS: Basophils Absolute Auto 0.05 K/mm3 (0.00-0.10); Basophils Percent Auto 0.7 % (0.0-1.0); Eosinophils Absolute Auto 0.24 K/mm3 (0.02-0.50); Eosinophils Percent Auto 3.3 % (1.0-6.0); Hematocrit 43.6 % (35.0-42.0); Hemoglobin 14.1 g/dL (11.7-13.8); Immature Granulocyte Absolute 0.03 K/mm3 (0.00-0.00); Immature Granulocyte Percent A 0.4 % (0.0-0.0); Lymphocytes Absolute Auto 1.99 K/mm3 (1.10-4.50); Lymphocytes Percent Auto 27.3 % (18.0-42.0); Mean Corpuscular HGB Conc 32.3 g/dL (32.0-36.0); Mean Corpuscular Hemoglobin 29.7 pg (27.0-31.0); Mean Corpuscular Volume 91.8 fL (78.0-102.0); Mean Platelet Volume 7.9 fl (9.2-11.8); Neutrophils Absolute Auto 4.2 K/mm3 (1.7-7.2); Neutrophils Percent Auto 57.3 % (50.0-70.0); Platelet Count Result 269 K/mm3 (150-420); Red Blood Count 4.75 M/mm3 (4.20-5.40); Red Cell Distribution Width 12.3 % (11.6-14.4); White Blood Count 7.3 K/mm3 (4.8-10.8)
[2023-06-02 11:07] LABS: Appearance Urine Clear (Clear); Bilirubin Urine Negative (Negative); Blood Urine Negative (Negative); Color Urine Light Yellow (Yellow); Glucose Urine UA Negative (Negative); Ketones Urine Negative (Negative); Leukocyte Esterase Ur 2+ (Negative); Nitrate Urine Negative (Negative); Protein Urine Negative (Negative); Urobilinogen Urine 0.2 mg/dL (0.2-1.0)
[2023-06-02 11:11] LABS: Add Urine Microscopic? YES; RBC Urine None seen /hpf (0-2)
[2023-06-02 11:12] LABS: Bacteria Urine Trace /hpf; Squamous Epithelial Cell Urine Few /hpf (Few)
[2023-06-02 12:31] LABS: Alanine Aminotransferase 28 U/L (14-59); Albumin Level 4.1 g/dL (3.4-5.0); Alkaline Phosphatase 85 U/L (46-116); Amylase 33 U/L (25-115); Anion Gap 9 mmol/L (8-16); Aspartate Amino Transferase 16 U/L (15-37); Bilirubin,Total 0.5 mg/dL (0.00-1.00); Blood Urea Nitrogen 11 mg/dL (7-18); Calcium 8.8 mg/dL (8.5-10.1); Carbon Dioxide 30 mmol/L (21-32); Chloride 96 mmol/L (98-108); Estimated Glomerular Filt Rate 59; Glucose 105 mg/dL (70-99); Lipase 28 U/L (16-77); Osmolality Calculated 279 mOsm/kg (285-295); Potassium 4.3 mmol/L (3.5-5.1); Sodium 135 mmol/L (136-145); Total Protein 7.1 g/dL (6.4-8.2)
== END 2023-06-02 10:53 | disposition home or self-care (01) ==
LOC: CHSLAB 10:55
PROVIDERS: PCP Internal Medicine; Visit Provider Internal Medicine
DX: R10.9 Unspecified abdominal pain (principal); N39.0 Urinary tract infection, site not specified
CPT/HCPCS: 36415; 80053; 81001; 82150; 83690; 85025; 87086; 87088

== ENCOUNTER 2023-08-01 16:06 | Outpatient (CLI) | payer MEDICARE, SELFPAY ==
--- NOTE | ~2023-08-01 | XR_ITS ---
XR_CERV2-3V_CR 08/01/2023 16:36 Indication: Neck pain Procedure: 3 view cervical spine Comparison: 08/04/2021 Findings: There is reversal of cervical lordosis. No prevertebral soft tissue swelling. There is dege nerative anterolisthesis at C4-5. There is disc narrowing at C5-6 and C6-7. There is advanced multile eusebia facet and uncinate hypertrophy. Odontoid process is unremarkable. Impression: 1: Severe cervical spondylosis. 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 Impression: 1: Severe cervical spondylosis.
--- NOTE | ~2023-08-01 | XR_ITS ---
XR lumbar spine 2-3V 08/01/2023 16:37 Indication: Chronic back pain Procedure: 3 views lumbar spine Comparison: 09/09/2018 Findings: There has been progression of disc height loss at L4-5. There is grade 1 degenerative spond ylolisthesis at L4-5 secondary to facet hypertrophy. There is also facet hypertrophy at L3-4 and L5-S 1. Vertebral body heights are maintained. There is atherosclerosis of the aorta. Sacral foramen are s ymmetric. There are symmetric degenerative change of the sacroiliac joints. Impression: 1: Progression of moderate-severe lumbar spondylosis. 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 Impression: 1: Progression of moderate-severe lumbar spondylosis.
--- NOTE | ~2023-08-01 | XR_ITS ---
XR thoracic spine 3V 08/01/2023 16:37 Indication: Generalized back pain. Procedure: 4 views thoracic spine Comparison: 03/24/2015 Findings: Mild multilevel thoracic spondylosis. Mildly accentuated thoracic kyphosis. No fracture, villalta bluxation or dislocation. No paraspinal soft tissue abnormality. Pedicles intact. Surrounding osseous structures are unremarkable. Impression: 1: Mild thoracic spondylosis. 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 Impression: 1: Mild thoracic spondylosis.
== END 2023-08-01 16:07 | disposition home or self-care (01) ==
PROVIDERS: PCP Internal Medicine; Visit Provider Internal Medicine
DX: R10.9 Unspecified abdominal pain (principal); M54.50 Low back pain, unspecified; M43.06 Spondylolysis, lumbar region; M43.02 Spondylolysis, cervical region; M43.04 Spondylolysis, thoracic region
CPT/HCPCS: 72040; 72072; 72100

== ENCOUNTER 2023-08-07 09:03 | Outpatient (CLI) | payer MEDICARE, SELFPAY ==
--- NOTE | ~2023-08-07 | US_ITS ---
Renal-Bladder ultrasound Clinical History: Flank pain Technique: Real-time sonographic imaging of the kidneys and urinary bladder was performed. Findings: The right kidney measures 10.5 cm in length and the left kidney measures 10.2 cm. There is no hydronephrosis or renal calculus identified. Renal cortical echogenicity is within normal limits. No renal mass lesion is identified. The urinary bladder is moderately distended at the time of this exam. No intraluminal echoes are iden tified. No abnormal wall thickening is seen. Impression: Unremarkable ultrasound of the kidneys and urinary bladder. Reviewed, dictated and finalized at location . Impression: Unremarkable ultrasound of the kidneys and urinary bladder.
== END 2023-08-07 09:04 | disposition home or self-care (01) ==
LOC: CHSIMG 09:04
PROVIDERS: PCP Internal Medicine; Visit Provider Internal Medicine
DX: R10.9 Unspecified abdominal pain (principal); M54.9 Dorsalgia, unspecified; M54.2 Cervicalgia
CPT/HCPCS: 76775

== ENCOUNTER 2024-03-09 13:47 | Outpatient (CLI) | payer MEDICARE, SELFPAY ==
--- NOTE | ~2024-03-09 | DEXA_ITS ---
Bone Density Report Name: MIKAL MOJICA Age: 78 Sex: Female Ethnicity: White Date of : 1945 Indication: osteopenia; height loss; cancer; hysterectomy; Referring Provider: RUI CANO Study: Bone densitometry was performed. Exam Date: March 09, 2024 Accession number: [id number] Bone Density: Region BMD T-score Z-score Classification AP Spine(L1-L4) 1.013 -0.3 2.3 Normal Femoral Neck (Left) 0.636 -1.9 0.3 Osteopenia Total Hip (Left) 0.802 -1.2 0.8 Osteopenia Femoral Neck (Right) 0.675 -1.6 0.6 Osteopenia Total Hip (Right) 0.822 -1.0 1.0 Normal Femoral Neck Mean 0.655 -1.7 0.5 Osteopenia Total Hip Mean 0.812 -1.1 0.9 Osteopenia World Health Organization criteria for BMD impression classify patients as: Normal (T-score at or above -1.0), Osteopenia (T-score between -1.0 and -2.5), or Osteoporosis (T-score at or below -2.5). 10-year Fracture Risk(1): Major Osteoporotic Fracture 14% Hip Fracture 3.5% Reported Risk Factors: [place] (), Neck BMD=0.636, BMI=32.4 (1) FRAX(R) Version 3.08. Fracture probability calculated for an untreated patient. Fracture probability may be lower if the patient has received treatment. Previous Exams: Region Exam Age BMD T-score BMD Change BMD Change Date g/cm2 vs Baseline vs Previous AP Spine (L1-L4) 03/09/2024 78 1.013 -0.3 0.042 (4.3%)* 0.042 (4.3%)* 08/08/2021 76 0.972 -0.7 Total Hip(Left) 03/09/2024 78 0.802 -1.2 -0.006 (-0.8%) -0.006 (-0.8%) 08/08/2021 76 0.808 -1.1 Total Hip(Right) 03/09/2024 78 0.822 -1.0 -0.038 (-4.4%) -0.038 (-4.4%) 08/08/2021 76 0.860 -0.7 *Denotes significance at 95% confidence level, LSC for AP Spine = 0.022 g/cm2, LSC for Total Hip = 0.027 g/cm2 Clinical Information Provided by Patient: Has used the following medications: Vitamin D, Calcium Has the following medical conditions: Cancer, Hysterectomy Patient maximum height was 64 Menopause Age: 41 Does not regularly consume dairy products Onset of menses at age 14 Number of children 2 Impression: The patient has low bone mass, based on the Left Femoral Neck T-score. The BMD for the Total Hip(Right) decreased, changing by -4.4% since the last DXA exam. Discussion: BONE DENSITY IS LOW AT ONE OR MORE SKELETAL SITES. This patient's lowest T-score is low at one or more skeletal sites. It meets the World Health Organization's (WHO) criteria for
== END 2024-03-09 13:48 | disposition home or self-care (01) ==
LOC: CHSIMG 13:49
PROVIDERS: PCP Internal Medicine; Visit Provider Obstetrics & Gynecology
DX: Z78.0 Asymptomatic menopausal state (principal); M85.89 Other specified disorders of bone density and structure, multiple sites
CPT/HCPCS: 77080

== ENCOUNTER 2024-03-27 07:08 | Outpatient (CLI) | payer MEDICARE, SELFPAY ==
[2024-03-27 07:57] LABS: Basophils Absolute Auto 0.06 K/mm3 (0.00-0.10); Basophils Percent Auto 1.2 % (0.0-1.0); Eosinophils Absolute Auto 0.21 K/mm3 (0.02-0.50); Eosinophils Percent Auto 4.3 % (1.0-6.0); Hematocrit 41.9 % (35.0-42.0); Hemoglobin 13.9 g/dL (11.7-13.8); Immature Granulocyte Absolute 0.01 K/mm3 (0.00-0.00); Immature Granulocyte Percent A 0.2 % (0.0-0.0); Lymphocytes Absolute Auto 2.03 K/mm3 (1.10-4.50); Lymphocytes Percent Auto 41.2 % (18.0-42.0); Mean Corpuscular HGB Conc 33.2 g/dL (32-36); Mean Corpuscular Hemoglobin 30.1 pg (27.0-31.0); Mean Corpuscular Volume 90.7 fL (78.0-102.0); Monocytes Absolute Auto 0.59 K/mm3 (0.10-0.90); Neutrophils Absolute Auto 2.03 K/mm3 (1.70-7.20); Neutrophils Percent Auto 41.1 % (50.0-70.0); Platelet Count Result 280 K/mm3 (150-420); Red Blood Count 4.62 M/mm3 (4.20-5.40); Red Cell Distribution Width 12.3 % (11.6-14.4); White Blood Count 4.9 K/mm3 (4.8-10.8)
[2024-03-27 07:59] LABS: Add Urine Microscopic? YES; Appearance Urine Clear (Clear); Bilirubin Urine Negative (Negative); Blood Urine Negative (Negative); Color Urine Light Yellow (Yellow); Glucose Urine UA Negative (Negative); Ketones Urine Negative (Negative); Leukocyte Esterase Ur 1+ LEU/UL (Negative); Nitrate Urine Negative (Negative); Protein Urine Negative (Negative); Urobilinogen Urine 0.2 mg/dL (0.2-1.0)
[2024-03-27 08:08] LABS: RBC Urine None seen /hpf (0-2)
[2024-03-27 08:09] LABS: Bacteria Urine Trace /hpf; Squamous Epithelial Cell Urine Few /hpf (Few)
[2024-03-27 08:25] LABS: Alanine Aminotransferase 23 U/L (14-59); Albumin Level 3.8 g/dL (3.4-5.0); Alkaline Phosphatase 91 U/L (46-116); Anion Gap 11 mmol/L (4-12); Aspartate Amino Transferase 17 U/L (15-37); Bilirubin,Total 0.4 mg/dL (0.00-1.00); Blood Urea Nitrogen 15 mg/dL (7-18); Calcium 9.3 mg/dL (8.5-10.1); Carbon Dioxide 27 mmol/L (21-32); Chloride 104 mmol/L (98-108); Cholesterol 205 mg/dL (0-200); Estimated Glomerular Filt Rate > 60; Glucose 110 mg/dL (70-99); HDL Direct 40 mg/dL (40-60); LDL Cholesterol Calculated 103 mg/dL (<130); Osmolality Calculated 295 mOsm/kg (285-295); Potassium 4.6 mmol/L (3.5-5.1); Sodium 142 mmol/L (136-145); Total Protein 6.9 g/dL (6.4-8.2); Triglycerides 308 mg/dL (0-150)
== END 2024-03-27 07:09 | disposition home or self-care (01) ==
PROVIDERS: PCP Internal Medicine; Visit Provider Internal Medicine
DX: E78.5 Hyperlipidemia, unspecified (principal); I10 Essential (primary) hypertension; R82.90 Unspecified abnormal findings in urine; R73.01 Impaired fasting glucose
CPT/HCPCS: 36415; 80053; 80061; 81001; 83036; 85025; 87086

== ENCOUNTER 2024-04-05 14:12 | Outpatient (CLI) | payer MEDICARE, SELFPAY ==
--- NOTE | ~2024-04-05 | MM_ITS ---
EXAMINATION: MM screening [facility] BI w samra HISTORY: Screening mammogram TECHNIQUE: Craniocaudal and mediolateral oblique 3-D tomosynthesis images were obtained and synthetic 2-D images were generated. CAD analysis was submitted and interpreted. COMPARISON: 03/31/2023, 03/28/2022, 03/26/2021, 03/22/2020 BREAST PARENCHYMAL COMPOSITION:Not Dense. The breasts are almost entirely fatty FINDINGS: No suspicious mass, calcification, or architectural distortion are identified in either huy ast to suggest malignancy. There has been no suspicious interval change. IMPRESSION: No mammographic evidence of malignancy. Recommend routine screening mammography in one year. BI-RADS Category 1: Negative Reviewed, dictated and finalized at location . [employer]
== END 2024-04-05 14:13 | disposition home or self-care (01) ==
LOC: CHSIMG 14:14
PROVIDERS: PCP Internal Medicine; Visit Provider Obstetrics & Gynecology
DX: Z12.31 Encounter for screening mammogram for malignant neoplasm of breast (principal)
CPT/HCPCS: 77063; 77067

== ENCOUNTER 2024-09-03 13:33 | Outpatient (CLI) | payer MEDICARE, SELFPAY ==
--- NOTE | ~2024-09-03 | CT_ITS ---
CLINICAL INDICATION: Abdominal pain COMPARISON: None. TECHNIQUE: Multiple contiguous axial images of the abdomen and pelvis were performed following the ad ministration of with 100 mL Omnipaque-350 intravenous contrast The dose-length product (DLP) was 676.63 mGy-cm. Automated exposure control and iterative reconstruction technique were employed. FINDINGS/OBSERVATIONS: Visualized lower thorax: The bilateral lung bases are clear. The heart is of normal size, without pericardial effusion. Small hiatal hernia is present. Liver: The liver demonstrates homogeneous enhancement and is enlarged measuring 19 cm in longitudinal dimens ion. Gallbladder and biliary system: Layering sludge within the gallbladder which is otherwise unremarkable. Pancreas: The pancreas demonstrates fatty atrophy without ductal dilatation. Spleen: The spleen enhances homogeneously and is not enlarged. Kidneys: The bilateral kidneys enhance symmetrically without hydronephrosis or renal calculi. Adrenal glands: Unremarkable. Gastrointestinal tract: Colonic diverticulosis without surrounding inflammatory change. Appendix: The appendix is not definitively visualized. However, no pericecal inflammatory change is identified suggest the presence of acute appendicitis. Vasculature: Densely calcified atherosclerotic disease. Lymph nodes: No pathologically enlarged or morphologically suspicious lymph nodes within the retroperitoneum or at the root of the mesentery. Pelvic structures: The bladder is only minimally distended with surrounding inflammatory change, for which cystitis is s uspected. The uterus is surgically absent. Body wall and musculoskeletal: Small fat-containing umbilical hernia.. Small fat-containing left inguinal hernia. Age-appropriate degenerative disease within the lumbosacral spine. IMPRESSION: Findings within the bladder for which cystitis is suspected. Small fat-containing left inguinal and umbilical hernias. Layering sludge within the gallbladder which is otherwise unremarkable. Hepatomegaly. 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
--- OUTSIDE RECORDS SUMMARY | 2024-09-03 13:36 | XMS_ITS | Clinical Summary ---
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 Pulse 74 08/09/2005 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 Temperature - - Respiratory Rate - - Oxygen Saturation - - Inhaled Oxygen Concentration - - Weight 80.7 kg (178 lb) 08/09/2005 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 Height 162.6 cm (5' 4 ) 08/09/2005 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 Body Mass Index 30.55 08/09/2005 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 Plan of Treatment Health Maintenance Due Date Last Done Comments Hepatitis C 1963 DTaP, Tdap and Td Vaccines ( 1 - Tdap) 1965 Pneumococcal Vaccine: 50+ Ye ars (1 of 1 - PCV) 1996 Zoster Vaccines (1 of 2) 1996 Dexa Scan (General) 2011 RSV Immunization or 60+ Years (1 - 1-dose 75+ series) 2021 COVID-19 Vaccine ( - 2023-2 5 season) 2024 Meningococcal B Vaccine Aged Out No l onger eligible based on patient's age to complete this topic Meningococcal Vaccine Aged Out No deborah live eligible based on patient's age to complete this topic RSV Immunizations Under 20 Months Aged Out No longer eligible based on patient's age to complete this topic
--- OUTSIDE RECORDS SUMMARY | 2024-09-03 13:36 | XMS_ITS | Clinical Summary ---
Author Organization [facility] Address [address] [place] [address] Care Team Providers Care Water Pollution Scientist Name Role Phone Nael Levine MD Primary Care Provider [phone] Malou Aj MD PhD Unavailable [phone] Kamilla Hawkins MD PhD Unavailable + Kendra Ovalles MD Unavailable [phone] Allergies Active Allergy Reactions Criticality Noted Date Comments Pollen Extracts Rhinorrhea Low 12/01/2017 Rosuvastatin Muscle pain Medium Muscles sore Sulfa (Sulfonamide Antibiotics) Other (See comments) Low I get a yeast infection Medications omeprazole (PriLOSEC) 40 mg capsuleIndicatio ns:Treatment of Non-Bleeding Gastric Disorder Take 1 capsule (40 mg total) by mouth every morning Active spironolactone (ALDACTONE) 50 mg tabletIndication s:hypertension Take 1 tablet (50 mg total) by mouth every morning Active nortriptyline (PAMELOR) 10 mg capsuleIndicatio ns:for IBS Take 1 capsule (10 mg total) by mouth nightly Active simvastatin (ZOCOR) 40 mg tabletIndication s:hyperlipidemia Take 1 tablet (40 mg total) by mouth daily before breakfast Active acetaminophen (TYLENOL) 500 mg tabletIndication s:Back Pain Take 2 tablets (1,000 mg total) by mouth every 6 (six) hours as needed for pain Active metoprolol tartrate (LOPRESSOR) 25 mg immediate release tablet 0 Active nitrofurantoin monohydrate (MACROBID) 100 mg capsule 2 Active Active Problems Problem Noted Date Diagnosed Date Endometrial cancer, grade I 12/08/2017 Cancer Staging:Clinical:FIGO Stage IA- Signed by Cruzito Vegas MD on 01/22/2018 Overview (12/08/2017): Added automatically from request for surgery [id number] Rotator cuff syndrome 07/23/2016 Shoulder pain 07/18/2016 Hypertension 02/11/2014 Overview (08/24/2016): Hypertension Hyperlipidemia 02/11/2014 Overview (08/24/2016): Hyperlipidemia Immunizations Immunization Administration Dates Next Due Influenza, Quadrivalent, Split, Intramuscular Influenza, Quadrivalent, Spl it, Preservative Free, Intramuscular 02/18/2019,02/24/2017 Influenza, Trivalent, Preservative Free, Intramu scular 02/16/2015 Pneumococcal Polysaccharide PPV23 11/11/2013 Surgical History Surgery Date Site/Laterality Comments KNEE SURGERY Knee Surgery TONSILLECTOMY Tonsillectomy APPENDECTOMY Appendectomy SHOULDER SURGERY Left BREAST BIOPSY BLADDER SUSPENSION HYSTERECTOMY Medical History Medical History Date Comments Irritable bowel syndrome Hypertension GERD (gastroesophageal reflux disease) IBS (irritable bowel syndrome) HLD (hyperlipidemia) Endometrial cancer (HCC) Family History Medical History Relation Name Comments Heart disease Father Family history of cardiac disorder - (Added by TW Conv) Stroke Father Stroke; Alzheimer's disease Mother Alzheime r's disease; Hypertension Mother Hypertension; Hyperlipidemia Other 1 High choleste rol; Hypertension Other 2 Hypertension; Relation Name Status Comments Father Mother Other 1 Other 2 Social History Tobacco Use Types Packs/Day Years Used Date Smoking Tobacco: Never Smokeless Tobacco: Never Tobacco Cessation:Counseling Given: Not Answered Alcohol Use Standard Drinks/Week Comments No 0 (1 standard drink = 0.6 oz pur e alcohol) Comments No Sex and Gender Information Value Date Recorded Sex Assigned at Not on file 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 Gender Identity Not on file Sexual Orientation Not on file Occupation Industry Job Start Date Job End Date retired Not on file Not on file Not on file Obstetrics History Para Term AB IAB SAB Ectopic Multiple Livin g Live Births 2 2 2 2 2 Date Outcome GA Total Labor Labor/2nd/3rd Weight Sex Type Anes PTL Milagro A1 A5 Name Clin Term Term Last Filed Vital Signs Vital Sign Reading Time Taken Comments Blood Pressure 146/78 11/13/2022 1:16 PM CDT Pulse 90 11/13/2022 1:16 PM CDT Temperature 36.9 C (98.5 F) 11/13/2022 1:16 PM CDT Respiratory Rate 16 11/13/2022 1:16 PM CDT Oxygen Saturation 96% 11/13/2022 1:16 PM CDT Inhaled Oxygen Concentration - - Weight 83.5 kg (184 lb) 11/13/2022 1:16 PM CDT Height 160 cm (5' 3 ) 11/13/2022 1:16 PM CDT Body Mass Index 32.59 11/13/2022 1:16 PM CDT Plan of Treatment Health Maintenance Due Date Last Done Comments Depression Screening 1945 Fall Risk Assessment 1945 Hepatitis C Screening 1945 Osteoporosis Screening-Bone Density Scan 1945 DTaP/Tdap/Td Vaccine (1 - Tdap) 1957 Hepatitis B Screening 1964 Zoster Vaccine (1 of 2) 1996 Well Visit 65+ 2011 Pneumococcal vaccine 65+ (2 of 2 - PCV) 11/11/2014 11/11/2013 Influenza Vaccine (#1) 2024 9, 02/24/2017, 02/16/2015, Additional history exists Insurance MEDICARE [employer]CIAL [place] [id number] [id number] MEDICARE [employer]CIAL [employer]IC [id number] [id number] Advance Directives For more information, please contact: [phone] * Full Code (Latest Code Status on File) Date Activated Date Inactivated Comments 12/18/2017 10:38 PM 12/19/2017 6:05 PM Care Teams Water Pollution Scientist Relationship Specialty Start Date End Date Nael Levine MD PCP - General 07/23/16 Malou Aj MD PhD Referring Physician Obstetrics and Gynecology 01/22/18 Kamilla Hawkins MD PhD [address] [facility] [address] [place] [address] Radiation Oncologist Radiation Oncology 04/14/18 Kendra Ovalles MD [address] [facility] [address] [place] [address] Referring Physician Obstetrics and Gynecology 06/03/18
--- OUTSIDE RECORDS SUMMARY | 2024-09-03 13:36 | XMS_ITS ---
Author Organization [facility] Address [address] [place], [place] [address] Care Team Providers Care Ops Analyst Name Role Phone DEMETRIA Cox Unavailable [phone] Nael Levine Unavailable Unavailable ELEAZAR VILLASENOR Unavailable [phone] REASON FOR VISIT *General care Medications Medication SIG (Take, Route, Frequency, Duration) Notes Start Date End Date Status Simvastatin 40 MG Oral for 90 Days Active Metoprolol Tartrate 25 MG Oral for 90 Days Active Nitrofurantoin Monohyd Macro 100 MG Oral for 10 Days Active Omeprazole 40 MG Oral for 90 Days Active Nortriptyline HCl 10 MG Oral for 90 Days Active Spironolactone 50 MG Oral for 90 Days Active Vital Signs Height 64.00 in 04/17/2023 Weight 190 lbs 04/17/2023 BMI 32.61 kg/m2 04/17/2023 Height-cm 162.56 cm 04/17/2023 Weight-kg 86.18 kg 04/17/2023 Encounters Encounter Location Date Provider Diagnosis [place] [address] [place], [place] [id number] 04/17/2023 ELEAZAR VILLASENOR Other hammer toe(s) (acquired), right foot M20.41 ; Tinea unguium B35.1 ; Other hammer toe(s) (acquired), left foot M20.42 ; Pain in right toe(s) M79.674 ; Pain in left toe(s) M79.675 and Unspecified atherosclerosis of [place] arteries of extremities, bilateral legs I70.203 Assessments Encounter Date Diagnosis (ICD Code) Assessment Notes Treatment Notes Treatment Clinical Notes Section Notes 04/17/2023 Other hammer toe(s) (acquired), right foot (ICD-10 - M20.41) The patient was educated regarding how to mechanically stabilize their deformity. The patient was given education about shoe recommendations specific for the condition. The patient was educated about custom orthotics and how appropriate shoes and orthotics can prevent further worsening of the deformity. The patient was educated about how bad shoe habits can worsen the condition. NSAIDS, P.T., injections and other conservative treatments were discussed. Both surgical and non surgical treatments were discussed, but conservative options were emphasized. 04/17/2023 Tinea unguium (ICD-10 - B35.1) Aseptic debridement of elongated thickened nails x 10 using sterile nippers, nails were debrided in length and thickness by 30% utilizing a nail nipper without incident. The patient was educated regarding all treatment options that include topical and oral antifungal treatments. I discussed the options of taking a sample of the nail to confirm diagnosis. Nail clippings were not sent for pathology analysis. The patient was educated why and how the fungal infection evolved in their feet and the patient was given information regarding how to prevent further infection. The patient was told to keep feet dry and change socks. The patient was told to be careful with old shoes and excessive sweating. The patient was educated regarding both OTC and prescription treatments. 04/17/2023 Other hammer toe(s) (acquired), left foot (ICD-10 - M20.42) 04/17/2023 Pain in right toe(s) (ICD-10 - M79.674) 04/17/2023 Pain in left toe(s) (ICD-10 - M79.675) 04/17/2023 Unspecified atherosclerosis of [place] arteries of extremities, bilateral legs (ICD-10 - I70.203) Patient educated on risks and aggravating factors of PVD, including conservative treatment options such as a diet and exercise regimen to aid in slowing progression of vascular disease Plan Of Treatment Treatment Notes Assessment Notes Other hammer toe(s) (acquired), right fo ot The patient was educated regarding how to mechanically stabilize their deformity. The patient was given education about shoe recommendations specific for the condition. The patient was educated about custom orthotics and how appropriate shoes and orthotics can prevent further worsening of the deformity. The patient was educated about how bad shoe habits can worsen the condition. NSAIDS, P.T., injections and other conservative treatments were discussed. Both surgical and non surgical treatments were discussed, but conservative options were emphasized. Tinea unguium Aseptic debridement of elongated thickened nails x 10 using sterile nippers, nails were debrided in length and thickness by 30% utilizing a nail nipper without incident. The patient was educated regarding all treatment options that include topical and oral antifungal treatments. I discussed the options of taking a sample of the nail to confirm diagnosis. Nail clippings were not sent for pathology analysis. The patient was educated why and how the fungal infection evolved in their feet and the patient was given information regarding how to prevent further infection. The patient was told to keep feet dry and change socks. The patient was told to be careful with old shoes and excessive sweating. The patient was educated regarding both OTC and prescription treatments. Unspecified atherosclerosis of [place] arteries of extremities, bilateral legs Patient educated on risks and aggravating factors of PVD, including conservative treatment options such as a diet and exercise regimen to aid in slowing progression of vascular disease Next Appt Details Follow Up: 3 Months, Reason: Progress Notes * MIKAL MOJICA MDOB:1944 (77 yo F)Acc No.[id number]:04/17/2023 Patient: Alicja MIKAL ROBERT Provider: Deb VILLASENOR :1945 A ge:77 Y S ex:Female Date:04/17/2023 Address:[address] [place] [address] [place] [address] Subjective: * Chief Complaints: * 1 . *General care. * HPI: H PI: General care Alicja wheeler presents to the office for at risk foot care. Patient states that their nails are thickened, elongated and painful. Patient states that it is aggravated by shoe gear. Onset is gradual. Patient denies being diabetic. Alicja wheeler denies taking blood thinners., D ate last seen by Dr. Levine was , I nitials As. * ROS: G eneral / Constitutional: Patient denies w eakness. R espiratory: Patient denies c hronic cough, shortness of breath, sputum production. C ardiovascular: Patient denies c hest pain, history of RI, irregular heartbeat. M usculoskeletal: Patient complains of f lat feet/ planus, hammertoes. ? P eripheral Vascular: Patient denies b lanching of skin, cold extremities, decreased sensation in extremities. S kin: Patient complains of f ungal nails, nail changes. ? N eurologic: Patient denies d izziness, gait abnormality, headache. * Medical History: * Medications: T aking Spironolactone 50 MG Tablet Oral , Taking Omeprazole 40 MG Capsule Delayed Release Oral , Taking Nortriptyline HCl 10 MG Capsule Oral , Taking Simvastatin 40 MG Tablet Oral , Taking Metoprolol Tartrate 25 MG Tablet Oral , Taking Nitrofurantoin Monohyd Macro 100 MG Capsule Oral Objective: * Vitals: W t: 190 lbs, Wt-k.18 kg, Ht: 64.00 in, Ht-cm: 162.56 cm, BMI: 32.61 Index, Body Surface Area: 1.97. * Examination: P hysical Examination: V ascular: Dorsalis Pedis pulse noted at 1/4 right foot and 1/4 left foot and Posterior Tibial pulse noted at 1/4 right foot and 1/4 left foot, Capillary refill times noted to be less than three seconds x ten, Temperature gradient noted to be warm to cool to bilateral foot, pedal hair present to bilateral foot and no varicosities are noted Dermatologic: there are no open lesions, no signs of active clinical infection, no erythema noted, no ecchymoses, nails are elongated thickened and dystrophic with subungual debris x ten Musculoskeletal: there is pain to palpation onto nail plate x ten, no calf pain noted bilaterally, arch height noted at 2/5 non-weight bearing bilaterally, first metatarsophalangeal joint range of motion 30 deg non-weight bearing bilaterally, flexible fifth digit hammer toe deformity noted to bilateral foot reducible with kelikian push up test Neurology: protective sensation intact to light touch bilateral digits one through five, vibratory sensation intact to first metatarsophalangeal joint bilaterally. Assessment: * Assessment: 1. T inea unguium - B35.1 (Primary) 2 . O ther hammer toe(s) (acquired), right foot - M20.41 3 . O ther hammer toe(s) (acquired), left foot - M20.42 4 . P ain in right toe(s) - M79.674 5 . P ain in left toe(s) - M79.675 6 . U nspecified atherosclerosis of [place] arteries of extremities, bilateral legs - I70.203 Plan: * Treatment: 2. O ther hammer toe(s) (acquired), right foot Notes: The patient was educated regarding how to mechanically stabilize their deformity. The patient was given education about shoe recommendations specific for the condition. The patient was educated about custom orthotics and how appropriate shoes and orthotics can prevent further worsening of the deformity. The patient was educated about how bad shoe habits can worsen the condition. NSAIDS, P.T., injections and other conservative treatments were discussed. Both surgical and non surgical treatments were discussed, but conservative options were emphasized. 3. U nspecified atherosclerosis of [place] arteries of extremities, bilateral legs Notes: Patient educated on risks and aggravating factors of PVD, including conservative treatment options such as a diet and exercise regimen to aid in slowing progression of vascular disease ? * Procedure Codes: 1 1721 DEBRIDE NAIL, 6 OR MORE, Modifiers: Q8 * Follow Up: 3 Months * Billing Information: * Visit Code: * Procedure Codes: 63093 DEBRIDE NAIL, 6 OR MORE. Modifiers: Q8 * MANAGER Sign off status: Completed true * Provider: Deb VILLASENOR Date: 06/17/2022 Generated for Nicolette phan/Shelley/Trav on: 0 09/03/2024 01:36 PM CDT History and Physical Notes * HPI (History of Present Illness) Category Sub-Category Detail Notes Category Not es HPI General care Patient presents to the office for at risk foot care. Patient states that their nails are thickened, elongated and painful. Patient states that it is aggravated by shoe gear. Onset is gradual. Patient denies being diabetic. Patient denies taking blood thinners., Date last seen by Dr. Levine was , Initials As Examination Category Sub-Category Detail Notes Category Not es Physical Examination Vascular: Dorsalis Pedis pulse noted at 1/4 right foot and 1/4 left foot and Posterior Tibial pulse noted at 1/4 right foot and 1/4 left foot, Capillary refill times noted to be less than three seconds x ten, Temperature gradient noted to be warm to cool to bilateral foot, pedal hair present to bilateral foot and no varicosities are noted Dermatologic: there are no open lesions, no signs of active clinical infection, no erythema noted, no ecchymoses, nails are elongated thickened and dystrophic with subungual debris x ten Musculoskeletal: there is pain to palpation onto nail plate x ten, no calf pain noted bilaterally, arch height noted at 2/5 non-weight bearing bilaterally, first metatarsophalangeal joint range of motion 30 deg non-weight bearing bilaterally, flexible fifth digit hammer toe deformity noted to bilateral foot reducible with kelikian push up test Neurology: protective sensation intact to light touch bilateral digits one through five, vibratory sensation intact to first metatarsophalangeal joint bilaterally
--- OUTSIDE RECORDS SUMMARY | 2024-09-03 13:36 | XMS_ITS | Referral Summary ---
Author Organization [facility] Address [address] [place] [address] Care Team Providers Care Hematology Technologist Name Role Phone Nael Levine MD Primary Care Provider [phone] Malou Aj MD PhD Unavailable [phone] Kamilla Hawkins MD PhD Unavailable + Kendra Ovalles MD Unavailable [phone] Allergies Active Allergy Reactions Criticality Noted Date [...] (12/08/2017): Added automatically from request for surgery [id number] Rotator cuff syndrome 07/23/2016 Shoulder pain 07/18/2016 Hypertension 02/11/2014 Overview (08/24/2016): Hypertension Hyperlipidemia 02/11/2014 Overview (08/24/2016): Hyperlipidemia Immunizations Immunization Administration Dates Next Due Influenza, Quadrivalent, Split, Intramuscular Influenza, Quadrivalent, Spl it, Preservative Free, Intramuscular 02/18/2019,02/24/2017 Influenza, Trivalent, Preservative Free, Intramu scular 02/16/2015 Pneumococcal Polysaccharide PPV23 11/11/2013 Social History Tobacco Use Types Packs/Day Years Used Date Smoking Tobacco: Never Smokeless Tobacco: Never Tobacco Cessation:Counseling Given: Not Answered Alcohol Use Standard Drinks/Week Comments No 0 (1 standard drink = 0.6 oz pur e alcohol) Comments No Sex and Gender Information Value Date Recorded Sex Assigned at Not on file Legal Sex Female 5:[address] Gender Identity Not on file Sexual Orientation Not on file Occupation Industry Job Start Date Job End Date retired Not on file Not on file Not on file Last Filed Vital Signs [...] 11/13/2022 1:16 PM CDT Plan of Treatment Not on file Insurance MEDICARE COMMERCIAL GENERIC MEDICARE COMMERCIAL GENERIC Advance Directives For more information, please contact: [phone] * Full Code (Latest Code Status on File) Date Activated Date Inactivated Comments 12/18/2017 10:38 PM 12/19/2017 6:05 PM Care Teams Hematology Technologist Relationship Specialty Start Date End Date Nael Levine MD PCP - General 07/23/16 Malou Aj MD PhD Referring Physician Obstetrics and Gynecology 01/22/18 Kamilla Hawkins MD PhD [address] [facility] [address] [place] [address] Radiation Oncologist Radiation Oncology 04/14/18 Kendra Ovalles MD [address] [facility] [address] [place], [place] [address] Referring Physician Obstetrics and Gynecology 06/03/18
--- OUTSIDE RECORDS SUMMARY | 2024-09-03 13:36 | XMS_ITS | Patient Health Record ---
Author Organization [facility] Address [address] [place], [place] [address] Care Team Providers Care Coater Name Role Phone DEMETRIA Cox Unavailable [phone] Nael Levine Unavailable Unavailable Allergies Allergen (clinical drug ingredient) Drug/Non Drug Allergy documented on EMR Reaction Allergy Type Onset Date Status Product containing sulfonamide (product) (uncoded) Unknown Allergy 05/15/2012 active Reason For Referral No Information Medications Medication SIG (Take, Route, Frequency, Duration) Notes Start Date End Date Status Nitrofurantoin Monohyd Macro 100 MG Oral for 10 Days Active Simvastatin 40 MG Oral for 90 Days Active Metoprolol Tartrate 25 MG Oral for 90 Days Active Omeprazole 40 MG Oral for 90 Days Active Nortriptyline HCl 10 MG Oral for 90 Days Active Spironolactone 50 MG Oral for 90 Days Active Immunizations Vaccine Route Administration Date Status Comme nts Influenza, seasonal, injecta ble, preservative free, 3 yrs and above Unknown 02/19/2023 Administered Plan Of Treatment No Information Insurance Providers Payer Name Payer Address Payer Phone Subscriber Number Group Number Insured Name Patient Relationship to Insured Coverage Start Date Coverage End Date Medicare Part B [place] [address] [place] [phone] [id number] MIKAL MOJICA Self - patient is the insured [facility] [address] [place] [address] [id number] MIKAL MOJICA Self - patient is the insured
--- OUTSIDE RECORDS SUMMARY | 2024-09-03 13:37 | XMS_ITS ---
Author Organization [facility] Address [address] [place], [place] [address] Care Team Providers Care Electroformer Name Role Phone DEMETRIA Cox Unavailable [phone] Nael Levine Unavailable Unavailable ELEAZAR VILLASENOR Unavailable [phone] Allergies Allergen (clinical drug ingredient) Drug/Non Drug Allergy documented on EMR Reaction Allergy Type Onset Date Status Product containing sulfonamide (product) (uncoded) Unknown Allergy 05/15/2012 active REASON FOR VISIT *General care Medications Medication SIG (Take, Route, Frequency, Duration) Notes Start Date End Date Status Nitrofurantoin Monohyd Macro 100 MG Oral for 10 Days Active Simvastatin 40 MG Oral for 90 Days Active Metoprolol Tartrate 25 MG Oral for 90 Days Active Nortriptyline HCl 10 MG Oral for 90 Days Active Spironolactone 50 MG Oral for 90 Days Active Omeprazole 40 MG Oral for 90 Days Active Vital Signs Height 64.00 in 06/19/2023 Weight 190 lbs 06/19/2023 BMI 32.61 kg/m2 06/19/2023 Height-cm 162.56 cm 06/19/2023 Weight-kg 86.18 kg 06/19/2023 Encounters Encounter Location Date Provider Diagnosis [facility] [address] [place], [place] [id number] 06/19/2023 ELEAZAR VILLASENOR Other hammer toe(s) (acquired), right foot M20.41 ; Tinea unguium B35.1 ; Other hammer toe(s) (acquired), left foot M20.42 ; Pain in right toe(s) M79.674 ; Pain in left toe(s) M79.675 and Unspecified atherosclerosis of [place] arteries of extremities, bilateral legs I70.203 Assessments Encounter Date Diagnosis (ICD Code) Assessment Notes Treatment Notes Treatment Clinical Notes Section Notes 06/19/2023 Other hammer toe(s) (acquired), right foot (ICD-10 [...] were discussed, but conservative options were emphasized. 06/19/2023 Tinea unguium (ICD-10 - B35.1) Aseptic debridement [...] educated regarding both OTC and prescription treatments. 06/19/2023 Other hammer toe(s) (acquired), left foot (ICD-10 - M20.42) 06/19/2023 Pain in right toe(s) (ICD-10 - M79.674) 06/19/2023 Pain in left toe(s) (ICD-10 - M79.675) 06/19/2023 Unspecified atherosclerosis of [place] arteries of extremities, bilateral legs (ICD-10 - [...] OTC and prescription treatments. Unspecified atherosclerosis of [place] arteries of extremities, bilateral legs Patient educated on risks and aggravating factors of PVD, including conservative treatment options such as a diet and exercise regimen to aid in slowing progression of vascular disease Next Appt Details Follow Up: 3 Months, Reason: Progress Notes * MIKAL MOJICA MDOB:1944 (78 yo F)Acc No.[id number]:06/19/2023 Patient: MIKAL GUILLORY Provider: Deb VILLASENOR :1945 A ge:78 Y S ex:Female Date:06/19/2023 Address:[address] [place] [address] [address] [facility] Subjective: * Chief Complaints: * 1 . *General care. * HPI: H PI: General care Alicja wheeler presents to the office for at risk foot care. Patient states that their nails are thickened, elongated and painful. Patient states that it is aggravated by shoe gear. Onset is gradual. Patient denies being diabetic., Patient denies taking blood thinners., Date last seen by Dr. Levine was 05/2023., Initials MW. * Medical History: * Family History: F ather: PRN - Father: :: Hypertension,,known absent , :: CAD,,known absent , :: Stroke,,known absent . M other: PRN - Mother: :: Hypertension,,known absent , :: Arthritis,,known absent .?Sister: SIB - Sister: . * Social History: M igrated Social History: M igrated Social History: Smoking Status : Never smoked , History of tobacco use :. * Medications: T aking Spironolactone 50 MG Tablet Oral , Taking Omeprazole 40 MG Capsule Delayed Release Oral , Taking Nortriptyline HCl 10 MG Capsule Oral , Taking Simvastatin 40 MG Tablet Oral , Taking Metoprolol Tartrate 25 MG Tablet Oral , Taking Nitrofurantoin Monohyd Macro 100 MG Capsule Oral * Allergies: P roduct containing sulfonamide (product): Allergy - Onset Date 05/15/2012. Objective: * Vitals: W t: 190 lbs, [...] M79.675 6 . U nspecified atherosclerosis of [place] arteries of extremities, bilateral legs - I70.203 [...] were emphasized. 3. U nspecified atherosclerosis of [place] arteries of extremities, bilateral legs Notes: Patient educated on risks and aggravating factors of PVD, including conservative treatment options such as a diet and exercise regimen to aid in slowing progression of vascular disease ? * Immunizations: Immunization record has been reviewed and updated. * Procedure Codes: 1 1721 DEBRIDE NAIL, 6 OR MORE, Modifiers: Q8 * Follow Up: 3 Months * Billing Information: * Visit Code: * Procedure Codes: 26683 DEBRIDE NAIL, 6 OR MORE. Modifiers: Q8 * [employer] Sign off status: Completed true * Provider: Deb VILLASENOR Date: 0 06/19/2023 Generated for Nicolette Villatoro/Trav on: 0 09/03/2024 01:36 PM CDT History and Physical Notes * HPI (History of Present Illness) Category Sub-Category Detail Notes Category Not es HPI General care Patient presents to the office for at risk foot care. Patient states that their nails are thickened, elongated and painful. Patient states that it is aggravated by shoe gear. Onset is gradual. Patient denies being diabetic., Patient denies taking blood thinners., Date last seen by Dr. Levine was 05/2023., Initials MW Examination Category Sub-Category Detail Notes Category Not [...]
--- OUTSIDE RECORDS SUMMARY | 2024-09-03 13:37 | XMS_ITS ---
Author Organization [facility] Address [address] [place], [place] [address] Care Team Providers Care Sign Painter Helper Name Role Phone DEMETRIA Cox Unavailable [phone] Nael Levine Unavailable Unavailable ELEAZAR VILLASENOR Unavailable [phone] REASON FOR VISIT *General care Encounters Encounter Location Date Provider Diagnosis [facility] [address] [place], [place] [id number] 08/21/2023 ELEAZAR VILLASENOR Plan Of Treatment No Information Progress Notes * MIKAL MOJICA MDOB:1944 (79 yo F)Acc No.[id number]:08/21/2023 Patient: Alicja MATTHEWDebMIKAL REESE Provider: Deb VILLASENOR :1945 A ge:78 Y S ex:Female Date:08/21/2023 Address:[facility] [address] [facility] Subjective: * Chief Complaints: * 1 . *General care. * Medical History: Objective: * Vitals: Assessment: Plan: * Treatment: * Billing Information: * Visit Code: * Procedure Codes: * Electronic signature of SEAN VILLASENOR DPM on 09/03/2024 at 01:36 PM CDT Sign off status: Pending * Provider: Deb VILLASENOR Date: 08/21/2023 Generated for Nicolette ng/Shelley/eTransmitting on: 09/03/2024 01:36 PM CDT
[2024-09-03 13:58] LABS: Add Urine Microscopic? YES; Appearance Urine Clear (Clear); Basophils Absolute Auto 0.05 K/mm3 (0.00-0.10); Basophils Percent Auto 0.8 % (0.0-1.0); Bilirubin Urine Negative (Negative); Blood Urine Negative (Negative); Color Urine Light Yellow (Yellow); Eosinophils Absolute Auto 0.13 K/mm3 (0.02-0.50); Glucose Urine UA Negative (Negative); Hematocrit 45.2 % (35.0-42.0); Hemoglobin 14.8 g/dL (11.7-13.8); Immature Granulocyte Absolute 0.03 K/mm3 (0.00-0.00); Immature Granulocyte Percent A 0.5 % (0.0-0.0); Ketones Urine Negative (Negative); Leukocyte Esterase Ur 1+ (Negative); Lymphocytes Absolute Auto 1.42 K/mm3 (1.10-4.50); Lymphocytes Percent Auto 22.1 % (18.0-42.0); Mean Corpuscular HGB Conc 32.7 g/dL (32-36); Mean Corpuscular Hemoglobin 30.1 pg (27.0-31.0); Mean Corpuscular Volume 91.9 fL (78.0-102.0); Mean Platelet Volume 7.8 fl (9.2-11.8); Monocytes Absolute Auto 0.66 K/mm3 (0.10-0.90); Monocytes Percent Auto 10.3 % (2.0-11.0); Neutrophils Absolute Auto 4.14 K/mm3 (1.70-7.20); Neutrophils Percent Auto 64.3 % (50.0-70.0); Nitrate Urine Negative (Negative); Platelet Count Result 272 K/mm3 (150-420); Protein Urine Negative (Negative); Red Blood Count 4.92 M/mm3 (4.20-5.40); Red Cell Distribution Width 12.1 % (11.6-14.4); Specific Grav Ur 1.015 (1.010-1.020); Urobilinogen Urine 0.2 mg/dL (0.2-1.0); White Blood Count 6.4 K/mm3 (4.8-10.8)
[2024-09-03 14:05] LABS: Bacteria Urine Trace /hpf; RBC Urine None seen /hpf (0-2); Squamous Epithelial Cell Urine Few /hpf (Few); WBC Clumps Urine Present /hpf
[2024-09-03 14:20] LABS: Alanine Aminotransferase 30 U/L (14-59); Albumin Level 4.2 g/dL (3.4-5.0); Alkaline Phosphatase 103 U/L (46-116); Anion Gap 9 mmol/L (4-12); Aspartate Amino Transferase 20 U/L (15-37); Bilirubin,Total 0.6 mg/dL (0.00-1.00); Blood Urea Nitrogen 9 mg/dL (7-18); Calcium 9.7 mg/dL (8.5-10.1); Carbon Dioxide 28 mmol/L (21-32); Chloride 102 mmol/L (98-108); Estimated Glomerular Filt Rate 55; Glucose 97 mg/dL (70-99); Osmolality Calculated 286 mOsm/kg (285-295); Sodium 139 mmol/L (136-145); Total Protein 7.9 g/dL (6.4-8.2)
== END 2024-09-03 13:34 | disposition home or self-care (01) ==
LOC: CHSLAB 13:34
PROVIDERS: PCP Nurse Practitioner Family; Visit Provider Nurse Practitioner Family
DX: R10.11 Right upper quadrant pain (principal); R19.7 Diarrhea, unspecified; K40.90 Unilateral inguinal hernia, without obstruction or gangrene, not specified as recurrent; K42.9 Umbilical hernia without obstruction or gangrene; R16.0 Hepatomegaly, not elsewhere classified
CPT/HCPCS: 36415; 74177; 80053; 81001; 85025; Q9967

== ENCOUNTER 2024-10-18 07:10 | Outpatient (CLI) | payer MEDICARE, SELFPAY ==
--- NOTE | ~2024-10-18 | US_ITS ---
US abdomen complete EXAMINATION: US Abdomen Complete INDICATION: Gallbladder sludge PROCEDURE: Realtime High Resolution abdomen ultrasound. COMPARISON: CT dated 09/03/2024 FINDINGS: There is gallbladder sludge. No stones identified. No gallbladder wall thickening. Common bile duct measures 5 mm. Liver echotexture is increased, consistent with fatty infiltration.. Pancreas within normal limits. Pancreatic tail is obscured by bowel gas. Spleen is unremarkeable. Renal echotexture is within norm al limits bilaterally without hydronephrosis, contour deforming mass or renal stone. Right kidney corine sures 9.8 cm. Left kidney measures 10.3 cm. Visualized aspects of the aorta and IVC are within normal limits. Portal vein is patent. No sonograph ic Serrano's sign indicated by the technologist. IMPRESSION: 1: Gallbladder sludge. 2: Fatty infiltration of the liver. 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
--- OUTSIDE RECORDS SUMMARY | 2024-10-18 07:17 | XMS_ITS ---
Author Organization [facility] Address [address] [place], [place] [address] Care Team Providers Care Grease Man Name Role Phone DEMETRIA Cox Unavailable [phone] Nael Levine Unavailable Unavailable ELEAZAR VILLASENOR Unavailable [phone] REASON FOR VISIT *General care Encounters Encounter Location Date Provider Diagnosis [facility] [address] [place], [place] [id number] 08/21/2023 ELEAZAR VILLASENOR Plan Of Treatment No Information Progress Notes * MIKAL MOJICA MDOB:1944 (79 yo F)Acc No.[id number]:08/21/2023 Patient: Alicja MATTHEWDebIMKAL REESE Provider: Deb VILLASENOR :1945 A ge:78 Y S ex:Female Date:08/21/2023 Address:[facility] [address] [id number] Subjective: * Chief Complaints: * 1 . *General care. * Medical History: Objective: * Vitals: Assessment: Plan: * Treatment: * Billing Information: * Visit Code: * Procedure Codes: * Electronic signature of SEAN VILLASENOR DPM on 10/18/2024 at 07:17 AM CDT Sign off status: Pending * Provider: Deb VILLASENOR Date: 08/21/2023 Generated for Nicolette phan/Shelley/eTransmitting on: 10/18/2024 07:17 AM CDT
--- OUTSIDE RECORDS SUMMARY | 2024-10-18 07:17 | XMS_ITS | Patient Health Record ---
Author Organization [facility] Address [address] [place], [place] [address] Care Team Providers Care Condenser Setter Name Role Phone DEMETRIA Cox Unavailable [phone] Nael Levine Unavailable Unavailable Allergies Allergen (clinical [...] Date Coverage End Date Medicare Part B [place] [address] [place] [address] [id number] MIKAL MOJICA Self - patient is the insured [facility] [address] [place] [address] [id number] MIKAL MOJICA Self - patient is the insured
--- OUTSIDE RECORDS SUMMARY | 2024-10-18 07:17 | XMS_ITS | Clinical Summary ---
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 Gender Identity Not on file Sexual Orientation [...] 1:16 PM CDT Height 160 cm (5' 3) 11/13/2022 1:16 PM CDT Body Mass Index [...] 2 - PCV) 11/11/2014 11/11/2013 Influenza Vaccine (Season Ended) 2025 02/18/2019, 02/24/2017, 02/16/2015, Additional history exists Insurance MEDICARE COMMERCIAL GENERIC MEDICARE COMMERCIAL GENERIC Advance Directives For more information, please contact: [phone] * Full Code (Latest Code Status on File) Date Activated Date Inactivated Comments 12/18/2017 10:38 PM 12/19/2017 6:05 PM Care Teams Shoemaker Custom Relationship Specialty Start Date End Date Nael Levine MD PCP - General 07/23/16 Malou Aj MD PhD Referring Physician Obstetrics and Gynecology 01/22/18 Kamilla Hawkins MD PhD [address] [facility] [address] [place] [address] Radiation Oncologist Radiation Oncology 04/14/18 Kendra Ovalles MD [address] [facility] [address] [address] Referring Physician Obstetrics and Gynecology 06/03/18
--- OUTSIDE RECORDS SUMMARY | 2024-10-18 07:17 | XMS_ITS | Referral Summary ---
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 Gender Identity Not on file Sexual Orientation [...] Advance Directives For more information, please contact: [phone] * Full Code (Latest Code Status on File) Date Activated Date Inactivated Comments 12/18/2017 10:38 PM 12/19/2017 6:05 PM Care Teams Manager Trade Relationship Specialty Start Date End Date Nael Levine MD PCP - General 07/23/16 Malou Aj MD PhD Referring Physician Obstetrics and Gynecology 01/22/18 Kamilla Hawkins MD PhD [address] [facility] [address] [place] [address] Radiation Oncologist Radiation Oncology 04/14/18 Kendra Ovalles MD [address] [facility] [address] [place], [place] [address] Referring Physician Obstetrics and Gynecology 06/03/18
== END 2024-10-18 07:11 | disposition home or self-care (01) ==
LOC: CHSIMG 07:15
PROVIDERS: PCP Internal Medicine
DX: R16.0 Hepatomegaly, not elsewhere classified (principal); K83.9 Disease of biliary tract, unspecified; K76.0 Fatty (change of) liver, not elsewhere classified
CPT/HCPCS: 76700

== ENCOUNTER 2024-12-03 07:49 | Outpatient (CLI) | payer MEDICARE, SELFPAY ==
--- OUTSIDE RECORDS SUMMARY | 2024-12-03 07:52 | XMS_ITS | Patient Health Record ---
Author Organization [facility] Address [address] [place], [place] [address] Care Team Providers Care Patient Services Manager Name Role Phone DEMETRIA Cox Unavailable [phone] Nael Levine Unavailable Unavailable Allergies Allergen (clinical drug ingredient) Drug/Non Drug Allergy documented on EMR Reaction Allergy Type Onset Date Status Product containing sulfonamide (product) (uncoded) Unknown Allergy 05/15/2012 active Reason For Referral No Information Medications Medication SIG (Take, Route, Frequency, Duration) Notes Start Date End Date Status Nitrofurantoin Monohyd Macro 100 MG Oral; Duration: 10 Days Acti ve Simvastatin 40 MG Oral; Duration: 90 Days Active Metoprolol Tartrate 25 MG Oral; Duration: 90 Days Active Omeprazole 40 MG Oral; Duration: 90 Days Active Nortriptyline HCl 10 MG Oral; Duration: 90 Days Active Spironolactone 50 MG Oral; Duration: 90 Days Active Immunizations Vaccine Route Administration Date Status Comme nts Influenza, seasonal, injecta ble, preservative free, 3 yrs and above Unknown 02/19/2023 Administered Plan Of Treatment No Information Insurance Providers Payer Name Payer Address Payer Phone Subscriber Number Group Number Insured Name Patient Relationship to Insured Coverage Start Date Coverage End Date Medicare Part B [place] [address] [place] [address] [id number] MIKAL MOJICA Self - patient is the insured [facility] [address] [place] [address] [id number] MIKAL MOJICA Self - patient is the insured
--- OUTSIDE RECORDS SUMMARY | 2024-12-03 07:53 | XMS_ITS | Clinical Summary ---
Author Organization [facility] Address [address] [place] [address] Care Team Providers Care Machine Hostler Name Role Phone Unavailable Primary Care Provider [...] Comments Blood Pressure 132/64 08/09/2005 4:20 PM KEY FILER Pulse 74 08/09/2005 4:20 PM KEY FILER Temperature - - Respiratory Rate - - Oxygen Saturation - - Inhaled Oxygen Concentration - - Weight 80.7 kg (178 lb) 08/09/2005 4:20 PM KEY FILER Height 162.6 cm (5' 4) 08/09/2005 4:20 PM KEY FILER Body Mass Index 30.55 08/09/2005 4:20 PM KEY FILER Plan of Treatment Health Maintenance Due Date [...]
--- OUTSIDE RECORDS SUMMARY | 2024-12-03 07:53 | XMS_ITS | Referral Summary ---
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 Gender Identity Not on file Sexual Orientation [...] Advance Directives For more information, please contact: [phone] * Full Code (Latest Code Status on File) Date Activated Date Inactivated Comments 12/18/2017 10:38 PM 12/19/2017 6:05 PM Care Teams Track Mechanic Relationship Specialty Start Date End Date Nael Levine MD PCP - General 07/23/16 Malou Aj MD PhD Referring Physician Obstetrics and Gynecology 01/22/18 Kamilla Hawkins MD PhD [address] [facility] [address] [place] [address] Radiation Oncologist Radiation Oncology 04/14/18 Kendra Ovalles MD [address] [facility] [address] [place], [place] [id number] Referring Physician Obstetrics and Gynecology 06/03/18
--- OUTSIDE RECORDS SUMMARY | 2024-12-03 07:53 | XMS_ITS ---
Author Organization Unknown Address [address] [place] [phone] Phone Care Team Providers Care Ruby Rails Developer Name Role Phone EDITH Hannon Attending Unavailable CESPEDES SARATH Primary Unavailable Immunization Immunization Date Status Additional Notes Code Code System pneumococcal polysaccharide PPV23 11/11/2013 Completed 33 CVX Tdap 04/06/2024 Completed 115 CVX Influenza, high-dose, trivalent, PF 03/17/2024 Completed 135 CVX Influenza, split virus, trivalent, PF 02/16/2015 Completed 140 CVX Influenza, split virus, quadrivalent, PF 02/24/2017 Completed 150 CVX Influenza, split virus, quadrivalent, PF 02/18/2019 Completed 150 CVX Influenza, split virus, quadrivalent, preservative 02/24/2014 Completed 158 C VX zoster recombinant 09/17/2022 Completed 187 CVX zoster recombinant 11/26/2022 Completed 187 CVX Influenza, high-dose, quadrivalent, PF 03/10/2020 Completed 197 CVX Influenza, high-dose, quadrivalent, PF 02/12/2021 Completed 197 CVX COVID-19, mRNA, LNP-S, PF, 3 0 mcg/0.3 mL dose 06/20/2020 Completed 208 CVX COVID-19, mRNA, LNP-S, PF, 3 0 mcg/0.3 mL dose 07/11/2020 Completed 208 CVX COVID-19, mRNA, LNP-S, PF, 3 0 mcg/0.3 mL dose 02/12/2021 Completed 208 CVX Pneumococcal conjugate PCV20 , polysaccharide [id number] conjugate, adjuvant, PF 04/19/2023 Completed 216 CVX COVID-19, mRNA, LNP-S, PF, 3 0 mcg/0.3 mL dose, mike-sucrose 10/05/2021 Completed 217 CVX RSV, recombinant, protein subunit RSVpreF, adjuvant reconstituted, 0.5 mL, PF 04/19/2023 Completed 303 CV X Social History Type Status Start Date End Date Code Code Syst em Sex Female Hospital Discharge Instructions Should you have any questions prior to discharge, please contact a member of your healthcare team. If you have left the hospital and have any questions, please contact your primary care physician. Reason For Referral No Data Found Plan of Treatment No Data Found Encounters Encounter Diagnosis Start Date Code Code Sys tem Right upper quadrant pain 10/07/2024 SN OMED-CT Personal Care Team Section Performer Name Performer Role Active Date Inactive SARATH Christianson PCP - Primary care physician 2024-10-10
--- OUTSIDE RECORDS SUMMARY | 2024-12-03 07:53 | XMS_ITS ---
Author Organization [facility] Address [address] [place], [place] [id number] Care Team Providers Care Skein Dyer Name Role Phone DEMETRIA Cox Unavailable [phone] Nael Levine Unavailable Unavailable ELEAZAR VILLASENOR Unavailable [phone] REASON FOR VISIT *General care Encounters Encounter Location Date Provider Diagnosis [facility] [place] [address] [place], [place] [id number] 08/21/2023 ELEAZAR VILLASENOR Plan Of Treatment No Information Progress Notes * MIKAL MOJICA MDOB:1944 (79 yo F)Acc No.[id number]:08/21/2023 Patient: Alicja MATTHEWDebMIKAL REESE Provider: Deb VILLASENOR :1945 A ge:78 Y S ex:Female Date:08/21/2023 Address:[facility] [address] [id number] Subjective: * Chief Complaints: * 1 . *General care. * Medical History: Objective: * Vitals: Assessment: Plan: * Treatment: * Billing Information: * Visit Code: * Procedure Codes: * Electronic signature of SEAN VILLASENOR DPM on 12/03/2024 at 07:52 AM CDT Sign off status: Pending * Provider: Deb VILLASENOR Date: 08/21/2023 Generated for Nicolette ng/Shelley/eTransmitting on: 12/03/2024 07:52 AM CDT
--- OUTSIDE RECORDS SUMMARY | 2024-12-03 07:53 | XMS_ITS | Clinical Summary ---
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 Gender Identity Not on file Sexual Orientation [...] - PCV) 11/11/2014 11/11/2013 Influenza Vaccine (#1) 2025 9, 02/24/2017, 02/16/2015, Additional history exists Insurance MEDICARE COMMERCIAL [place] [address] [id number] MEDICARE COMMERCIAL GENERIC [address] [id number] Advance Directives For more information, please contact: [phone] * Full Code (Latest Code Status on File) Date Activated Date Inactivated Comments 12/18/2017 10:38 PM 12/19/2017 6:05 PM Care Teams Plant Safety Leader Relationship Specialty Start Date End Date Nael Levine MD PCP - General 07/23/16 Malou Aj MD PhD Referring Physician Obstetrics and Gynecology 01/22/18 Kamilla Hawkins MD PhD [address] [facility] [address] [place] [address] Radiation Oncologist Radiation Oncology 04/14/18 Kendra Ovalles MD [address] [facility] [address] [place] [address] Referring Physician Obstetrics and Gynecology 06/03/18
--- NOTE | 2024-12-03 08:08 | ECG_ITS ---
Test Date: 2024-12-03 08:13:01 Measurements Intervals [place] Rate: 68 P: 46 MN: 176 QRS: 50 QRSD: 95 T: 77 QT: 395 QTc: 422 Interpretive Statements SINUS RHYTHM WITH SINUS ARRHYTHMIA NORMAL ELECTROCARDIOGRAM No previous ECG available for comparison Electronically Signed On 12-04-2024 08:59:21 CDT by Robbie Glez M.D.
[2024-12-03 08:52] LABS: Alanine Aminotransferase 22 U/L (6-35); Albumin Level 4.3 g/dL (3.5-5.1); Alkaline Phosphatase 75 U/L (38-126); Amylase 63 U/L (30-110); Anion Gap 6 mmol/L (4-12); Aspartate Amino Transferase 29 U/L (14-36); Bilirubin,Total 0.5 mg/dL (0.2-1.3); Blood Urea Nitrogen 10 mg/dL (7-17); Calcium 9.3 mg/dL (8.4-10.2); Carbon Dioxide 27 mmol/L (22-30); Chloride 106 mmol/L (98-107); Estimated Glomerular Filt Rate > 60; Glucose 98 mg/dL (65-110); Lipase 120 U/L (23-300); Osmolality Calculated 287 mOsm/kg (285-295); Potassium 4.8 mmol/L (3.4-5.0); Sodium 139 mmol/L (137-145); Total Protein 6.8 g/dL (6.3-8.2)
== END 2024-12-03 07:50 | disposition home or self-care (01) ==
PROVIDERS: PCP Internal Medicine; Visit Provider Surgery
DX: Z01.818 Encounter for other preprocedural examination (principal); K42.9 Umbilical hernia without obstruction or gangrene; K82.8 Other specified diseases of gallbladder; I10 Essential (primary) hypertension; E78.5 Hyperlipidemia, unspecified
CPT/HCPCS: 36415; 80053; 82150; 82248; 83690; 93005

== ENCOUNTER 2024-12-08 08:32 | Outpatient (CLI) | payer MEDICARE, SELFPAY ==
--- OUTSIDE RECORDS SUMMARY | 2024-12-08 08:38 | XMS_ITS | Referral Summary ---
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 Gender Identity Not on file Sexual Orientation [...] Advance Directives For more information, please contact: [phone] * Full Code (Latest Code Status on File) Date Activated Date Inactivated Comments 12/18/2017 10:38 PM 12/19/2017 6:05 PM Care Teams High Density Finishing Operator Relationship Specialty Start Date End Date Nael Levine MD PCP - General 07/23/16 Malou Aj MD PhD Referring Physician Obstetrics and Gynecology 01/22/18 Kamilla Hawkins MD PhD [address] [facility] [address] [place] [address] Radiation Oncologist Radiation Oncology 04/14/18 Kendra Ovalles MD [address] [facility] [address] [place], [place] [address] Referring Physician Obstetrics and Gynecology 06/03/18
--- OUTSIDE RECORDS SUMMARY | 2024-12-08 08:38 | XMS_ITS | Clinical Summary ---
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 Gender Identity Not on file Sexual Orientation [...] Insurance MEDICARE COMMERCIAL GENERIC [address] [id number] MEDICARE COMMERCIAL GENERIC [address] [id number] Advance Directives For more information, please contact: [phone] * Full Code (Latest Code Status on File) Date Activated Date Inactivated Comments 12/18/2017 10:38 PM 12/19/2017 6:05 PM Care Teams Gleason Gear Generator Relationship Specialty Start Date End Date Nael Levine MD PCP - General 07/23/16 Malou Aj MD PhD Referring Physician Obstetrics and Gynecology 01/22/18 Kamilla Hawkins MD PhD [address] [facility] [address] [place] [address] Radiation Oncologist Radiation Oncology 04/14/18 Kednra Ovalles MD [address] [facility] [address] [place] [address] Referring Physician Obstetrics and Gynecology 06/03/18
--- OUTSIDE RECORDS SUMMARY | 2024-12-08 08:38 | XMS_ITS ---
Author Organization Unknown Address [address] [place] [phone] Phone Care Team Providers Care Maintenance Controller Name Role Phone EDITH Hannon Attending Unavailable [...] 208 CVX Pneumococcal conjugate PCV20 , polysaccharide [id number] conjugate, adjuvant, PF 04/19/2023 Completed 216 CVX [...]
--- OUTSIDE RECORDS SUMMARY | 2024-12-08 08:38 | XMS_ITS | Patient Health Record ---
Author Organization [facility] Address [address] [place], [place] [address] Care Team Providers Care See Supervisor Name Role Phone DEMETRIA Cox Unavailable [phone] Nael Levine Unavailable Unavailable Allergies Allergen (clinical [...] Date Coverage End Date Medicare Part B [place] [address] [place] [address] [id number] MIKAL MOJICA Self - patient is the insured [facility] [address] [place] [address] [id number] MIKAL MOJICA Self - patient is the insured
--- OUTSIDE RECORDS SUMMARY | 2024-12-08 08:39 | XMS_ITS ---
Author Organization [facility] Address [address] [place], [place] [id number] Care Team Providers Care Outdoor Guide Name Role Phone DEMETRIA Cox Unavailable [phone] Nael Levine Unavailable Unavailable ELEAZAR VILLASENOR Unavailable [phone] REASON FOR VISIT *General care Encounters Encounter Location Date Provider Diagnosis [facility] [place] [address] [place], [place] [id number] 08/21/2023 ELEAZAR VILLASENOR Plan Of Treatment No Information Progress Notes * MIKAL MOJICA MDOB:1944 (79 yo F)Acc No.[id number]:08/21/2023 Patient: Alicja MATTHEWDebMIKAL REESE Provider: Deb VILLASENOR :1945 A ge:78 Y S ex:Female Date:08/21/2023 Address:[facility] [address] [facility] Subjective: * Chief Complaints: * 1 . *General care. * Medical History: Objective: * Vitals: Assessment: Plan: * Treatment: * Billing Information: * Visit Code: * Procedure Codes: * Electronic signature of SEAN VILLASENOR DPM on 12/08/2024 at 08:38 AM CDT Sign off status: Pending * Provider: Deb VILLASENOR Date: 08/21/2023 Generated for Nicolette ng/Shelley/eTransmitting on: 12/08/2024 08:38 AM CDT
--- OUTSIDE RECORDS SUMMARY | 2024-12-08 08:39 | XMS_ITS | Clinical Summary ---
Author Organization [facility] Address [address] [place] [address] Care Team Providers Care Grinder Set Up Operator Thread Tool Name Role Phone Unavailable Primary Care Provider [...] Comments Blood Pressure 132/64 08/09/2005 4:20 PM RADIAL ARM SAW OPERATOR Pulse 74 08/09/2005 4:20 PM RADIAL ARM SAW OPERATOR Temperature - - Respiratory Rate - - Oxygen Saturation - - Inhaled Oxygen Concentration - - Weight 80.7 kg (178 lb) 08/09/2005 4:20 PM RADIAL ARM SAW OPERATOR Height 162.6 cm (5' 4) 08/09/2005 4:20 PM RADIAL ARM SAW OPERATOR Body Mass Index 30.55 08/09/2005 4:20 PM RADIAL ARM SAW OPERATOR Plan of Treatment Health Maintenance Due [...]
[2024-12-08 09:09] LABS: Add Urine Microscopic? YES; Appearance Urine Clear (Clear); Glucose Urine UA Negative (Negative); Leukocyte Esterase Ur Trace LEU/UL (Negative); Nitrate Urine Negative (Negative); Specific Grav Ur <= 1.005 (1.010-1.020)
== END 2024-12-08 08:33 | disposition home or self-care (01) ==
LOC: CHSLAB 08:35
PROVIDERS: PCP Internal Medicine; Visit Provider Internal Medicine
DX: N39.0 Urinary tract infection, site not specified (principal)
CPT/HCPCS: 81001

== ENCOUNTER 2024-12-10 00:29 | Day surgery (SDC) | payer MEDICARE, SELFPAY ==
[2024-11-30 09:31] VITALS: BMI 32.2
--- NOTE | 2024-11-30 09:46 | PC.NURSE ---
Report to the Outpatient Waiting Room, entrance under the green pavilion located off [facility], at time _10:00am on date __12/10/24 . Planned Procedure Time: ___12:00pm .? Time changes happen often and if your time is changed the preop area will call you the afternoon before. - You and your visitor will be asked to self-screen and do not enter if you have any COVID symptoms. Please call surgeon if you need to reschedule. - A mask is optional within the hospital at this time. Patients may have clear liquids (water, carbonated beverages, clear teas, apple juice) until 3 hours prior to surgery with a maximum of 20 ounces. - No food from midnight until time of surgery and no smoking, or chewing tobacco (or any form of nicotine). No chewing gum, candy or mints. (0900am) Take only the following medications with a SIP of water on the morning of surgery: ____NONE DO NOT STOP ANY OF YOUR OTHER PRESCRIPTION MEDICATIONS PRIOR TO SURGERY EXCEPT THE FOLLOWING Hold all vitamins and supplements for 3 days per anesthesiologist.Date of last dose is 12/06/24 Medications to discontinue per physician NONE Date to take last dose NONE Please no make-up, nail serbian, hairspray, perfume, deodorant, or body powder the day of surgery.? No jewelry (including any body piercings) or valuables the day of surgery, leave them at home.? Please take a shower or bath the night before, or the morning of, surgery with an antibacterial soap.? Wear comfortable, loose fitting clothing.? - Jewelry must be removed prior to entering the operating room.? Rings and piercings that are not removed may be cut off. - The hospital will not accept responsibility for valuables.? - Please leave all valuables, including medications, at home the day of surgery. If you are going home after surgery, a licensed livery car driver must drive you home.? - NO public transportation without another adult if you receive anesthesia. - We recommend that an adult stay with you for 24 hours following discharge. - We also recommend that you do not drive, make important decision, drink alcoholic beverages, or take any drugs that were not prescribed by your health care provider for at least 24 hours after your discharge time. Follow any additional instructions given to you from your surgeon. Telephone instructions given to __Patient and asked if any additional questions and then verbalized understanding. Patient advised to call surgeon office or pre surgery nurse liaison [phone] if any additional questions.
[2024-12-10] VITALS (8 sets, daily range): BP systolic 105–145; BP diastolic 49–68; PULSE 67–76; RESP 11–20; TEMP 36.8; O2SAT 98–100
--- OUTSIDE RECORDS SUMMARY | 2024-12-10 00:30 | XMS_ITS | Clinical Summary ---
Author Organization [facility] Address [address] [place] [address] Care Team Providers Care Natural Foods Clerk Name Role Phone Unavailable Primary Care Provider [...] Comments Blood Pressure 132/64 08/09/2005 4:20 PM COTTON EXPERT Pulse 74 08/09/2005 4:20 PM COTTON EXPERT Temperature - - Respiratory Rate - - Oxygen Saturation - - Inhaled Oxygen Concentration - - Weight 80.7 kg (178 lb) 08/09/2005 4:20 PM COTTON EXPERT Height 162.6 cm (5' 4) 08/09/2005 4:20 PM COTTON EXPERT Body Mass Index 30.55 08/09/2005 4:20 PM COTTON EXPERT Plan of Treatment Health Maintenance Due Date [...]
--- OUTSIDE RECORDS SUMMARY | 2024-12-10 00:30 | XMS_ITS | Patient Health Record ---
Author Organization [facility] Address [address] [place], [place] [phone] Care Team Providers Care Label Machine Operator Name Role Phone DEMETRIA Cox Unavailable [phone] Nael Levine Unavailable Unavailable Allergies Allergen (clinical [...] Date Coverage End Date Medicare Part B [place] [address] [place] [address] [id number] MIKAL MOJICA Self - patient is the insured [facility] [address] [place] [address] [id number] MIKAL MOJICA Self - patient is the insured
--- OUTSIDE RECORDS SUMMARY | 2024-12-10 00:30 | XMS_ITS | Clinical Summary ---
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 Gender Identity Not on file Sexual Orientation [...] Insurance MEDICARE COMMERCIAL [place]IC [address] [id number] MEDICARE COMMERCIAL GENERIC Member Subscriber Plan / Payer ( fective 2017-Present) Name:Mikal Mojica Relation to Subscriber:Self Name:MIKAL MOJICA Payer ID:[id number] Group ID:[id number] Type:COMMERCIAL Address: [address] [place] [id number] [id number] Advance Directives For more information, please contact: [phone] * Full Code (Latest Code Status on File) Date Activated Date Inactivated Comments 12/18/2017 10:38 PM 12/19/2017 6:05 PM Care Teams Seaming Machine Operator Relationship Specialty Start Date End Date Nael Levine MD PCP - General 07/23/16 Malou Aj MD PhD Referring Physician Obstetrics and Gynecology 01/22/18 Kamilla Hawkins MD PhD [address] [facility] [address] [place] [address] Radiation Oncologist Radiation Oncology 04/14/18 Kendra Ovalles MD [address] [facility] [address] [place] [address] Referring Physician Obstetrics and Gynecology 06/03/18
--- OUTSIDE RECORDS SUMMARY | 2024-12-10 00:30 | XMS_ITS | Referral Summary ---
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 Gender Identity Not on file Sexual Orientation [...] Advance Directives For more information, please contact: [phone] * Full Code (Latest Code Status on File) Date Activated Date Inactivated Comments 12/18/2017 10:38 PM 12/19/2017 6:05 PM Care Teams Sports Book Writer Relationship Specialty Start Date End Date Nael Levine MD PCP - General 07/23/16 Malou Aj MD PhD Referring Physician Obstetrics and Gynecology 01/22/18 Kamilla Hawkins MD PhD [address] [facility] [address] [place] [address] Radiation Oncologist Radiation Oncology 04/14/18 Kendra Ovalles MD [address] [facility] [address] [place], [place] [address] Referring Physician Obstetrics and Gynecology 06/03/18
--- OUTSIDE RECORDS SUMMARY | 2024-12-10 00:30 | XMS_ITS ---
Author Organization [facility] Address [address] [place], [place] [address] Care Team Providers Care Date Puller Name Role Phone DEMETRIA Cox Unavailable [phone] Nael Levine Unavailable Unavailable ELEAZAR VILLASENOR Unavailable [phone] REASON FOR VISIT *General care Encounters Encounter Location Date Provider Diagnosis [facility] [place] [address] [place], [place] [id number] 08/21/2023 ELEAZAR VILLASENOR Plan Of Treatment No Information Progress Notes * MIKAL MOJICA MDOB:1944 (79 yo F)Acc No.[id number]:08/21/2023 Patient: Alicja MATTHEWDebMIKAL REESE Provider: Deb VILLASENOR :1945 A ge:78 Y S ex:Female Date:08/21/2023 Address:[facility] [address] [facility] Subjective: * Chief Complaints: * 1 . *General care. * Medical History: Objective: * Vitals: Assessment: Plan: * Treatment: * Billing Information: * Visit Code: * Procedure Codes: * Electronic signature of SEAN VILLASENOR DPM on 12/10/2024 at 12:30 AM CDT Sign off status: Pending * Provider: Deb VILLASENOR Date: 08/21/2023 Generated for Nicolette ng/Faclarice/eTransmitting on: 0 12/10/2024 12:30 AM CDT
[2024-12-10] MEDS: ACETAMINOPHEN 500 MG TABLET 1000 MG PO (11:00)
[2024-12-10] MEDS: LACTATED RINGERS 1,000 ML 30 ML IV CONT ×2 (11:10→13:03)
[2024-12-10] MEDS: KETOROLAC 15 MG/ML VIAL (*BKC) IV PUSH (11:15)
--- NOTE | 2024-12-10 11:36 | WPDHPUPDATE1 ---
History and Physical Update Update Date/Time: 12/10/24 11:36 History and Physical has been reviewed, including an updated exam of the patient. There are NO changes in the patient's condition. Risks, benefits, and alternatives have been discussed and questions answered. Patient agrees to proceed with procedure.
--- NOTE | 2024-12-10 11:45 | P.PNAN_ITS ---
Anes - Initial Pre Proc Eval Procedure: Operation Date: 12/10/24 12:00 Proposed Procedures p Laparoscopic Cholecystectomy, Possible Open - Dante Carvalho DO s Open Umbilical Hernia Repair - Dante Carvalho DO Date/Time: 12/10/24 11:45 Surgeon: Dante Carvalho DO Pre Op Diagnosis: gall bladder sludge, umbilical hernia 1cm Patient Data Age: 79 Gender: F Height: 1.6 m Weight: 80.9 kg Last Vital Signs Temp 36.8 C 12/10/24 10:15 Pulse 67 12/10/24 10:15 Resp 20 12/10/24 10:15 BP 145/68 H 12/10/24 10:15 Pulse Ox 99 12/10/24 10:15 O2 Del Method Room Air 12/10/24 10:15 Allergies Allergy/AdvReac Type Severity Reaction Status Date / Time Sulfa (Sulfonamide AdvReac Intermediate Vaginal Verified 12/10/24 10:28 Antibiotics) infection Home Medications ?Medication ?Instructions ?Recorded ?Confirmed ?Type metoprolol tartrate 25 mg tablet 25 mg PO .PM 06/03/19 12/10/24 History simvastatin 40 mg tablet 40 mg PO DAILY 06/03/19 12/10/24 History spironolactone 50 mg tablet 50 mg PO DAILY 06/03/19 12/10/24 History nortriptyline 10 mg capsule 20 mg PO HS 10/29/20 12/10/24 History omeprazole 40 mg capsule,delayed 40 mg PO DAILY 10/29/20 12/10/24 History release ciprofloxacin HCl 250 mg tablet 250 mg PO Q12H 11/30/24 12/10/24 History inulin-sorbitol 2 gram chewable 1 tablet PO DAILY 11/30/24 12/10/24 History tablet (Fiber Supplement (inulin)) Patient hx anesthesia problems: none Family hx anesthesia problems: none Results Review: All pre-operative results and documents have been reviewed as part of the pre- operative evaluation. [facility] Past Medical History Medical History Positive colorectal cancer screening using Cologuard test High cholesterol Endometrial cancer Acid reflux Anemia Diverticulosis Hypertension Irritable bowel Migraines History of vaginal delivery Surgical History Surgical History History of tonsillectomy and adenoidectomy History of breast biopsy History of knee surgery H/O hysterectomy with oophorectomy Endometrial cancer History of shoulder surgery History of lumpectomy of left breast History of bladder surgery History of appendectomy Family History Family History Father Family history of hypercholesterolemia Hypertension Acute myocardial infarction Cerebrovascular accident Mother Family history of Alzheimer's disease Social History Social History Smoking status: Never smoker Alcohol intake: never Substance use: never Substance use type: does not use Lack of Transportation: No Lack of Food: Never True Current Housing: I Have Housing Concerned About Future Housing: No Difficulty Paying Gas/Electric Bills: No Difficulty Paying for Meds: No Currently Unemployed: No Education: High School Diploma/GED Difficulty w/ Childcare or Family Care: No Living arrangements: with family Additional living arrangements comments: Spiritual care concerns: No Anes - Eval Final PreProcedure Day of Procedure 12/10/24 11:45 Patient weight: obese Heart: regular rate and rhythm Lungs: clear to auscultation Airway: Mallampati scale class II Neurological: alert and oriented Last oral intake: >/= 8 hours ASA classification: III Emergent: no Anesthetic plan: proceed Anesthesia type and monitoring: general GIVS and standard monitoring Results Review: All pre-operative results and documents have been reviewed as part of the pre- operative evaluation. Informed Consent: The patient's anesthetic plan and its attendant risks and benefits were discussed with the patient/family/POA. Questions were solicited and answers provided to the satisfaction of the patient/family/POA.
[2024-12-10] MEDS: ceFAZolin 2 GM in SODIUM CHLORIDE 0.9% IV 50 ML 100 ML IVPB (11:52)
[2024-12-10] MEDS: BUPIVACAINE/EPINEPHRINE 0.5% 50 ML VIAL 30 ML INFILTRATE (12:17)
--- NOTE | 2024-12-10 12:27 | S_PTH ---
PATIENT: Hannah Delvalle LOC: [facility] U#:[id number] AGE/SX: 79/F ROOM: RE12/10/[address]: Dante Carvalho DO : 1945 BED: DIS: 12/10/2024 SPEC #: [id number] RECD: 12/10/24 13:29 STATUS: EDSON REQ #: [id number] ARMAND: 12/10/24 12:[address]: Dante Carvalho DEPT: [facility] Surgical RECD BY: Chica Charlton MLT, ([facility]) ENTERED: 12/10/24 13:30 SP TYPE: Surgical OTHR DR: Nael Levine MD Tissues: A - Gallbladder Procedures: Hematoxylin and Eosin Stain Gross and Microscopic Level 3
--- NOTE | 2024-12-10 12:53 | P.OP_ITS ---
Procedure Note - Detailed Date of Procedure 12/10/24 Pre-op Diagnosis gall bladder sludge, umbilical hernia 1cm Post-op Diagnosis Same Procedure Performed 1. Laparoscopic cholecystectomy 2. Open 1cm umbilical hernia repair Surgeon Dante Carvalho, DO Anesthesia General and Local (0.5% bupivacaine) Indications This is a 79-year-old woman who presents with a 2-3 month history of epigastric and right upper quadrant pain after eating. This happens most commonly after eating fried or greasy foods. She had a CT and ultrasound performed which both showed evidence of gallbladder sludge. The patient also was noted to have a small umbilical hernia that was causing some occasional tenderness. Discussions were made with the patient about treatment options for both issues and decision was made to proceed with laparoscopic cholecystectomy and open umbilical hernia repair. Findings Laparoscopic cholecystectomy was initially performed. The patient's gallbladder was distended but appeared normal thickness. The cystic duct appeared normal in size. No other intra-abdominal abnormalities were noted. The gallbladder was removed and sent to the lab for pathology. At the conclusion of the laparoscopic procedure once all ports were removed, I then extended the incision at the umbilicus to identify the umbilical hernia. The fascia around the umbilical hernia was cleared using electrocautery and then the hernia was repaired using 0 Ethibond [id number] sutures. A total of 3 sutures were placed transversely. The repair appeared secure. Description of Procedure Procedure as well as risks, benefits, and alternatives were discussed with patient. Written consent was obtained and placed in chart prior to procedure. The patient was brought back to surgical suite. Patient was placed in supine position on operating table. Time-out was done to confirm patient and procedure. Patient was then intubated by the anesthesia department. Abdomen was prepped and draped in sterile fashion using chlorhexidine prep. 0.5% bupivacaine with epinephrine was infiltrated at each site of incision. An 11 millimeter transverse incision was made at the superior portion of the umbilicus using a 15 blade scalpel. Electrocautery was used to carefully dissect around the hernia sac and the hernia sac was then excised and discarded. The peritoneum was entered through the hernia sac and an 11 mm trocar was then inserted. Carbon dioxide insufflation was used to create a pneumoperitoneum. The camera was inserted and the abdomen was inspected. The patient was placed in reverse Trendelenberg position and rotated slightly to the left. A 5 millimeter incision was made in the epigastric region, and a 5 millimeter trocar was inserted under direct visualization. Two 5 millimeter incisions were made in the right upper quadrant, and two 5 millimeter trocars were inserted under direct visualization. The gallbladder was identified and grasped at the fundus and retracted superiorly. It was then grasped at the infundibulum retracted laterally. Careful dissection around the neck of the gallbladder was performed using blunt dissection with a [place] grasper and hook electrocautery. The cystic duct was identified, and a window was created behind it. The cystic artery was also identified and a window was created behind it. The critical view of safety was identified, visualizing the cystic duct running directly into the neck of the gallbladder, and the cystic artery running directly into the wall of the gallbladder. A 5 millimeter clip step down nurse was then used to place 2 clips proximally and 1 clip distally on both the cystic duct and cystic artery. They were then both transected using endoscopic scissors. Once safely away from the mark hepatitis, the gallbladder was dissected free from the liver bed using hook electrocautery. Hemostasis was achieved along the way. The gallbladder was removed completely and then removed through the umbilical port. The liver bed was then inspected. Hemostasis appeared adequate, and our clips appeared secure. The area was gently irrigated with sterile saline. No other abnormalities were seen. The patient was flattened out in bed, and 1 final inspection was made around the abdominal cavity. The ports were then removed under direct visualization, the camera was removed, and the pneumoperitoneum was released. The umbilical incision was then extended to about 2 cm wide to adequately visualize the hernia. Electrocautery was then used to clear the fascia circumferentially around the hernia defect. The hernia measured 1 cm. The hernia was then repaired using 0 Ethibond [id number] sutures. A total of 3 sutures were placed transversely to approximate the fascia. The sutures were tied down in place and the repair was then inspected. This appeared secure. 0.5% bupivacaine with epinephrine was infiltrated locally around the fascia and subcutaneous space. The subcutaneous space was then reapproximated using 3-0 Vicryl simple interrupted sutures. The skin of the incisions was approximated using 4-0 Monocryl subcuticular sutures. Exofin glue was applied on top. The patient was then awakened from anesthesia, extubated, and transferred to recovery. Estimated Blood Loss 5 Urine Output 300 Pathology Yes (Gallbladder) Complications No immediate complications Condition Stable Disposition Same day [facility] Billing Surgery - Charge Forward: Surgery Billing
[2024-12-10] MEDS: oxyCODONE HCL (*CRX) 2.5 MG TAB IR PO (14:15)
== END 2024-12-10 14:53 | disposition home or self-care (01) ==
PROVIDERS: PCP Internal Medicine; Visit Provider Surgery
PROC: 0FT44ZZ Resection of Gallbladder, Percutaneous Endoscopic Approach (ICD-10-PCS; CPT 47562; principal; 2024-12-10 12:00)
PROC: (CPT 47562; 2024-12-10 12:00)
DX: K42.9 Umbilical hernia without obstruction or gangrene (principal); K80.10 Calculus of gallbladder with chronic cholecystitis without obstruction; E66.9 Obesity, unspecified; Z68.31 Body mass index [BMI] 31.0-31.9, adult
CPT/HCPCS: 47562; 49591; 88304; J0690; A9270; J1885; J2003; J2405; J2704; J3010; J7120

== ENCOUNTER 2025-03-18 10:58 | Outpatient (CLI) | payer MEDICARE, SELFPAY ==
--- OUTSIDE RECORDS SUMMARY | 2025-03-18 11:23 | XMS_ITS | Patient Health Record ---
Author Organization [facility] Address [address] [place], [place] [id number] Care Team Providers Care Network Developer Name Role Phone DEMETRIA Cox Unavailable [phone] Nael Levine Unavailable Unavailable Allergies Allergen (clinical drug ingredient) Drug/Non Drug Allergy documented on EMR Reaction Allergy Type Onset Date Status Substance with sulfonamide structure and antibacterial mechanism of action (substance) Product containing sulfonamide (product) (uncoded) Unknown Allergy 05/15/2012 active Reason For Referral No Information Medications Medication SIG (Take, Route, Frequency, Duration) Notes Start Date End Date Status Nitrofurantoin Monohyd Macro 100 MG Capsule Oral; Duration: 10 Days Ac tive Simvastatin 40 MG Tablet Oral; Duration: 90 Days Active Metoprolol Tartrate 25 MG Tablet Oral; Duration: 90 Days Acti ve Omeprazole 40 MG Capsule Delayed Release Oral; Duration: 90 Days A ctive Nortriptyline HCl 10 MG Capsule Oral; Duration: 90 Days Acti ve Spironolactone 50 MG Tablet Oral; Duration: 90 Days Active Immunizations Vaccine Route Administration Date Status Comme nts Influenza, seasonal, injecta ble, preservative free, 3 yrs and above Unknown 02/19/2023 Administered Social History Social History Additional Details Category Social Info Options Details Migrated Social History Migrated Social History Smoking Status : Never smoked , History of tobacco use : Plan Of Treatment No Information Insurance Providers Payer Name Payer Address Payer Phone Subscriber Number Group Number Insured Name Patient Relationship to Insured Coverage Start Date Coverage End Date Medicare Part B [place] [address] [place] [address] [id number] MIKAL MOJICA Self - patient is the insured [facility] [address] [place] [address] [id number] MIKAL MOJICA Self - patient is the insured
--- OUTSIDE RECORDS SUMMARY | 2025-03-18 11:23 | XMS_ITS | Clinical Summary ---
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 Pulse 74 08/09/2005 4:20 PM CAKE PUNCHER Temperature - - Respiratory Rate - - Oxygen Saturation - - Inhaled Oxygen Concentration - - Weight 80.7 kg (178 lb) 08/09/2005 4:20 PM CAKE PUNCHER Height 162.6 cm (5' 4) 08/09/2005 4:20 PM CAKE PUNCHER Body Mass Index 30.55 08/09/2005 4:20 PM CAKE PUNCHER Plan of Treatment Health Maintenance Due Date Last Done Comments Hepatitis C 1963 DTaP, Tdap and Td Vaccines ( 1 - Tdap) 1965 Pneumococcal Vaccine: 50+ Ye ars (1 of 1 - PCV) 1996 Zoster Vaccines (1 of 2) 1996 Dexa Scan (General) 2011 RSV Immunization or 60+ Years (1 - 1-dose 75+ series) 2021 COVID-19 Vaccine ( - 2024-2 6 season) 2025 Influenza Adult (#1) 2025 Hepatitis A Vaccines Aged Out No long er eligible based on patient's age to complete this topic Meningococcal B Vaccine Aged Out No l onger eligible based on patient's age to complete this topic Meningococcal Vaccine Aged Out No deborah live eligible based on patient's age to complete this topic RSV Immunizations Under 20 Months Aged Out No longer eligible based on patient's age to complete this topic
--- OUTSIDE RECORDS SUMMARY | 2025-03-18 11:23 | XMS_ITS | Clinical Summary ---
Author Organization [facility] Address [address] [place] [address] Care Team Providers Care Fiscal Agent Name Role Phone Nael Levine MD Primary Care Provider [phone] Malou Aj MD PhD Unavailable [phone] Kamilla Hawkins MD PhD Unavailable + Kendra Ovalles MD Unavailable [phone] Allergies Active Allergy Reactions Criticality Noted Date [...] (12/08/2017): Added automatically from request for surgery [id number] Rotator cuff syndrome 07/23/2016 Shoulder pain 07/18/2016 [...] (irritable bowel syndrome) HLD (hyperlipidemia) Endometrial cancer Family History Medical History Relation Name Comments [...] on file 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 Gender Identity Not on file Sexual Orientation [...] Additional history exists Insurance MEDICARE COMMERCIAL GENERIC [id number] [id number] MEDICARE COMMERCIAL GENERIC Advance Directives For more information, please contact: [phone] * Full Code (Latest Code Status on File) Date Activated Date Inactivated Comments 12/18/2017 10:38 PM 12/19/2017 6:05 PM Care Teams Fiscal Agent Relationship Specialty Start Date End Date Nael Levine MD PCP - General 07/23/16 Malou Aj MD PhD Referring Physician Obstetrics and Gynecology 01/22/18 Kamilla Hawkins MD PhD [address] [facility] [address] [place] [address] Radiation Oncologist Radiation Oncology 04/14/18 Kendra Ovalles MD [address] [address] Referring Physician Obstetrics and Gynecology 06/03/18
== END 2025-03-18 10:59 | disposition home or self-care (01) ==
LOC: CHSLAB 10:59
PROVIDERS: PCP Internal Medicine; Visit Provider Internal Medicine
DX: N39.0 Urinary tract infection, site not specified (principal)
CPT/HCPCS: 87086; 87186

== ENCOUNTER 2025-04-07 07:11 | Outpatient (CLI) | payer MEDICARE, SELFPAY ==
--- NOTE | ~2025-04-07 | MM_ITS ---
EXAMINATION: MM screening emmanuel BI w samra HISTORY: Screening TECHNIQUE: Craniocaudal and mediolateral oblique 3-D tomosynthesis images were obtained and synthetic 2-D images were generated. CAD analysis was submitted and interpreted. COMPARISON: Comparison to multiple prior studies sequentially, with oldest reviewed study dated , 03/22/2020 BREAST PARENCHYMAL COMPOSITION: Not Dense: The breasts are almost entirely fatty. FINDINGS: There is no evidence of suspicious mass, calcification, or architectural distortion to suggest malignancy in either breast. IMPRESSION: 1. No mammographic evidence of malignancy. 2. Recommend routine screening mammography in one year. BI-RADS Category 1: Negative Reviewed, dictated and finalized at location B. 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
--- OUTSIDE RECORDS SUMMARY | 2025-04-07 07:15 | XMS_ITS | Patient Health Record ---
Author Organization [facility] Address [address] [place], [place] [address] Care Team Providers Care System Auditor Name Role Phone DEMETRIA Cox Unavailable [phone] Nael Levine Unavailable Unavailable Allergies Allergen (clinical [...] Date Coverage End Date Medicare Part B [place] [address] [place] [address] [id number] MIKAL MOJICA Self - patient is the insured [facility] [address] [place] [address] [id number] MIKAL MOJICA Self - patient is the insured
--- OUTSIDE RECORDS SUMMARY | 2025-04-07 07:15 | XMS_ITS | Clinical Summary ---
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
--- OUTSIDE RECORDS SUMMARY | 2025-04-07 07:15 | XMS_ITS | Clinical Summary ---
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 Gender Identity Not on file Sexual [...] Additional history exists Insurance MEDICARE COMMERCIAL GENERIC [id number] [id number] MEDICARE COMMERCIAL GENERIC Advance Directives For more information, please contact: [phone] * Full Code (Latest Code Status on File) Date Activated Date Inactivated Comments 12/18/2017 10:38 PM 12/19/2017 6:05 PM Care Teams Oracle Analyst Relationship Specialty Start Date End Date Nael Levine MD PCP - General 07/23/16 Malou Aj MD PhD Referring Physician Obstetrics and Gynecology 01/22/18 Kamilla Hawkins MD PhD [address] [facility] [address] [place] [address] Radiation Oncologist Radiation Oncology 04/14/18 Kendra Ovalles MD [address] [address] Referring Physician Obstetrics and Gynecology 06/03/18
--- OUTSIDE RECORDS SUMMARY | 2025-04-07 07:15 | XMS_ITS ---
Author Organization Unknown Address [address] [place] [phone] Phone Care Team Providers Care Operations Recruiter Name Role Phone EDITH Hannon Attending Unavailable [...] 208 CVX Pneumococcal conjugate PCV20 , polysaccharide [id number] conjugate, adjuvant, PF 04/19/2023 Completed 216 CVX [...]
== END 2025-04-07 07:12 | disposition home or self-care (01) ==
LOC: CHSIMG 07:12
PROVIDERS: PCP Internal Medicine; Visit Provider Obstetrics & Gynecology
DX: Z12.31 Encounter for screening mammogram for malignant neoplasm of breast (principal)
CPT/HCPCS: 77063; 77067